=== PATIENT | male | born 1970 | race Caucasian/White ===

== ENCOUNTER → 2018-09-15 | Outpatient (CLI) | payer OTHER ==
[~2018-09-15] MED LIST: GASTROGRAFIN SOLUTION 30ML (Q9963) As Ordered; ISOVUE-370 76% 100ML VIAL (Q9967) As Ordered
== END ==
LOC: M RAD 14:10
DX: R10.813 Right lower quadrant abdominal tenderness (principal)
CPT/HCPCS: Q9963

== ENCOUNTER → 2019-06-08 | Outpatient (CLI) | payer OTHER ==
[2019-06-08 13:58] LABS: BASO # 0.1 10^3/uL (0.0-0.2); BASO % 0.9 % (0.0-1.0); EOS # 0.1 10^3/uL (0.0-0.50); EOS % 1.9 % (0.0-3.0); HEMATOCRIT 43.7 % (42.0-52.0); HEMOGLOBIN 15.7 g/dl (13.5-17.5); LYMPH # 1.5 10^3/uL (1.5-4.5); LYMPH % 27.7 % (24.0-44.0); MEAN CORPUSCULAR HEMOGLOBIN 31.3 pg (27.0-33.0); MEAN CORPUSCULAR HGB CONC 35.9 g/dl (32.0-36.5); MEAN CORPUSCULAR VOLUME 87.1 fl (80.0-96.0); MONO # 0.3 10^3/uL (0.0-0.8); NEUTROPHILS # 3.4 10^3/uL (1.8-7.7); NEUTROPHILS % 64.1 % (36.0-66.0); PLATELET COUNT, AUTOMATED 210 10^3/uL (150-450); RED BLOOD COUNT 5.02 10^6/uL (4.30-6.10); WHITE BLOOD COUNT 5.4 10^3/uL (4.0-10.0)
[2019-06-08 14:17] LABS: ERYTHROCYTE SEDIMENTATION RATE 8 mm/hr (0-15)
[2019-06-08 14:28] LABS: RHEUMATOID FACTOR QUANT < 10.0 IU/ML (<15.0); THYROXINE (T4) 10.7 UG/DL (4.5-12.0)
== END ==
LOC: M LAB 12:52
PROVIDERS: ATTEND Ophthalmology
DX: Z13.29 Encounter for screening for other suspected endocrine disorder (principal)

== ENCOUNTER → 2019-07-11 | Outpatient (REF) | payer OTHER ==
[~2019-07-11] MED LIST changes: +DOXY100C PO; -GASTROGRAFIN SOLUTION 30ML (Q9963) As Ordered; -ISOVUE-370 76% 100ML VIAL (Q9967) As Ordered; +NEXI20CA PO
[2019-07-11 16:56] LABS: ALBUMIN 4.4 GM/DL (3.2-5.2); ALT/SGPT 25 U/L (12-78); BILIRUBIN,TOTAL 0.7 MG/DL (0.2-1.0); BLOOD UREA NITROGEN 12 MG/DL (7-18); C REACTIVE PROTEIN QUANTITATIV < 0.30 MG/DL (0.00-0.30); CARBON DIOXIDE LEVEL 27 MEQ/L (21-32); CHLORIDE LEVEL 105 MEQ/L (98-107); CREATININE FOR GFR 0.84 MG/DL (0.70-1.30); GLOMERULAR FILTRATION RATE > 60.0 (>60); GLUCOSE, FASTING 88 MG/DL (70-100); POTASSIUM SERUM 3.8 MEQ/L (3.5-5.1); SODIUM LEVEL 140 MEQ/L (136-145); TOTAL PROTEIN 7.6 GM/DL (6.4-8.2)
[2019-07-11 16:57] LABS: BASO # 0.1 10^3/uL (0.0-0.2); BASO % 1.5 % (0.0-1.0); EOS # 0.1 10^3/uL (0.0-0.5); EOS % 1.7 % (0.0-3.0); HEMATOCRIT 45.9 % (42.0-52.0); HEMOGLOBIN 15.7 g/dl (13.5-17.5); LYMPH # 1.4 10^3/uL (1.5-5.0); LYMPH % 29.2 % (24.0-44.0); MEAN CORPUSCULAR HEMOGLOBIN 30.4 pg (27.0-33.0); MEAN CORPUSCULAR HGB CONC 34.2 g/dl (32.0-36.5); MONO # 0.4 10^3/uL (0.0-0.8); MONO % 8.2 % (0.0-5.0); NEUTROPHILS # 2.7 10^3/uL (1.5-8.5); PLATELET COUNT, AUTOMATED 200 10^3/uL (150-450); RED BLOOD COUNT 5.16 10^6/uL (4.30-6.10); WHITE BLOOD COUNT 4.6 10^3/uL (4.0-10.0)
[2019-07-11 18:06] LABS: ERYTHROCYTE SEDIMENTATION RATE 6 mm/hr (0-15)
[2019-07-15 00:06] LABS: BABESIOSIS LEVEL IGG <1:10 (Neg:<1:10); BABESIOSIS LEVEL IGM <1:10 (Neg:<1:10); E CHAFFEENSIS IgG TITER Negative (Neg:<1:64); E CHAFFEENSIS IgM TITER Negative (Neg:<1:20); HUMAN GRANULCYTIC EHRLIC IgG Negative (Neg:<1:64); HUMAN GRANULCYTIC EHRLIC IgM Negative (Neg:<1:20)
== END ==
LOC: M SFHCPLAZ 12:52
PROVIDERS: ATTEND Internal Medicine Infectious Disease
DX: A69.20 Lyme disease, unspecified (principal)

== ENCOUNTER 2019-07-13 15:03 | Outpatient (CLI) | payer OTHER ==
[~2019-07-13] VITALS: Ht 180.3 cm; Wt 95.3 kg
[~2019-07-13 15:03] MED LIST changes: -LIDOCAINE 1% MDV 20ML VIAL As Ordered ONE
[2019-07-13 15:05] VITALS: BP 136/79
[2019-07-13] MEDS ORDERED: SODIUM CHLORIDE 0.9% INJ 10 ML SYR IV PRN (15:30)
[2019-07-13] MEDS ORDERED: cefTRIAXone SOD 2 GM in D5W MINI-BAG PLUS 50 ML IV ONE (16:00)
[2019-07-13] MEDS ORDERED: SODIUM CHLORIDE 0.9% INJ 10 ML SYR IV SCH (18:00)
== END 2019-07-13 16:00 | disposition short-term general hospital (02) ==
LOC: M INFU 15:03
PROVIDERS: ATTEND Internal Medicine Infectious Disease
DX: A69.20 Lyme disease, unspecified (principal)
CPT/HCPCS: 96365; J0696

== ENCOUNTER 2019-07-13 15:59 | Emergency (ER) | payer OTHER ==
[~2019-07-13] VITALS: Ht 180.3 cm; Wt 100.0 kg
[2019-07-13 17:13] LABS: BASO # 0.1 10^3/uL (0.0-0.2); BASO % 1.1 % (0.0-1.0); EOS # 0.1 10^3/uL (0.0-0.5); EOS % 2.5 % (0.0-3.0); HEMATOCRIT 39.3 % (42.0-52.0); HEMOGLOBIN 14.2 g/dl (13.5-17.5); LYMPH # 2.2 10^3/uL (1.5-5.0); LYMPH % 39.4 % (24.0-44.0); MEAN CORPUSCULAR HEMOGLOBIN 31.1 pg (27.0-33.0); MEAN CORPUSCULAR HGB CONC 36.1 g/dl (32.0-36.5); MONO # 0.5 10^3/uL (0.0-0.8); MONO % 8.1 % (0.0-5.0); NEUTROPHILS # 2.7 10^3/uL (1.5-8.5); NEUTROPHILS % 48.5 % (36.0-66.0); PLATELET COUNT, AUTOMATED 201 10^3/uL (150-450); RED BLOOD COUNT 4.57 10^6/uL (4.30-6.10); WHITE BLOOD COUNT 5.5 10^3/uL (4.0-10.0)
[2019-07-13 17:24] LABS: INR 0.92; PROTHROMBIN TIME 12.1 SECONDS (11.8-14.0)
[2019-07-13 17:55] LABS: ALBUMIN 3.8 GM/DL (3.2-5.2); ALT/SGPT 20 U/L (12-78); BILIRUBIN,DIRECT < 0.1 MG/DL (0.0-0.2); BILIRUBIN,TOTAL 0.3 MG/DL (0.2-1.0); BLOOD UREA NITROGEN 11 MG/DL (7-18); CALCIUM LEVEL 8.8 MG/DL (8.5-10.1); CARBON DIOXIDE LEVEL 23 MEQ/L (21-32); CHLORIDE LEVEL 107 MEQ/L (98-107); CK-MB VALUE MASS 1.2 NG/ML (<3.6); CPK CREATINE PHOSPHOKINASE 193 U/L (39-308); CREATININE FOR GFR 0.92 MG/DL (0.70-1.30); GLOMERULAR FILTRATION RATE > 60.0 (>60); GLUCOSE, FASTING 106 MG/DL (70-100); MB/CK RELATIVE INDEX 0.62 (< OR =4); POTASSIUM SERUM 3.3 MEQ/L (3.5-5.1); SODIUM LEVEL 140 MEQ/L (136-145); TOTAL PROTEIN 6.8 GM/DL (6.4-8.2); TROPONIN I < 0.02 NG/ML (< 0.10)
[2019-07-13 18:40] VITALS: BP 131/79
--- NOTE | 2019-07-14 00:09 | ECGEPIP ---
[facility] - ED Test Date: 2019-07-13 Pat Name: CHIKA CABRAL Department: Room: - Gender: Male Hse Specialist: [facility] : 1970 Requested By: DEVI Rivera Order Number: [id number] Reading MD: Steve Farias Measurements Intervals [place] Rate: 72 P: 62 DC: 152 QRS: 49 QRSD: 96 T: 38 QT: 399 QTc: 438 Interpretive Statements SINUS RHYTHM BENIGN EARLY REPOLARIZATION NO PRIORS FOR COMPARISON Electronically Signed on 07-14-2019 0:09:28 EDT by Steve Farias
== END 2019-07-13 18:30 | disposition home or self-care (01) ==
LOC: M ED 15:59
DX: R55 Syncope and collapse (principal); A69.20 Lyme disease, unspecified; Z79.899 Other long term (current) drug therapy

== ENCOUNTER → 2019-07-13 | Outpatient (CLI) | payer OTHER ==
[~2019-07-13] MED LIST changes: +LIDOCAINE 1% MDV 20ML VIAL As Ordered ONE
[2019-07-13 14:42] VITALS: BP 157/87
--- NOTE | 2019-07-14 16:03 | REP ---
PICC line insertion under ultrasound guidance. The procedure was performed by SHILPA Kate, under the direct supervision of Dr. Crandall. The risks and benefits of the procedure were explained to the patient and informed consent was obtained both verbally and written. Directly prior to the start of the procedure, a formal timeout was completed in the procedure room. The left medial brachial vein was localized using ultrasound guidance. The skin was prepped and draped in the sterile fashion. 1 ml 1% lidocaine was used as a local anesthetic. Using ultrasound guidance the left medial brachial vein was cannulated and a 0.018 guidewire was inserted and advanced to the SVC using fluoroscopic guidance. The needle was removed and a 4.5 Hungarian dilator and peel-away sheath was inserted over the guidewire. A 4.5 Hungarian single lumen catheter was cut to the length of 40 cm. The dilator was removed and the catheter was inserted over the guide wire with the tip ending in the SVC. The peel-away sheath was removed and the catheter was flushed with heparinized saline as per hospital protocol. The catheter was affixed to the skin and a sterile dressing was applied. The patient tolerated the procedure well and there were no immediate complications. 0.3 minutes of fluoroscopy time was utilized for this procedure. Some fluoroscopic images are performed with last image hold technology. These images require no additional radiation. Reviewed by SHILPA Rivera 07/14/2019 03:44 P Electronically Signed by Roberto Crandall MD 07/14/2019 03:55 P
== END ==
LOC: M IRPRO 13:44
DX: A69.20 Lyme disease, unspecified (principal)
CPT/HCPCS: 36569; C1751

== ENCOUNTER 2019-07-17 20:31 | Inpatient (IN) | payer OTHER ==
[~2019-07-17] VITALS: Ht 180.3 cm; Wt 94.5 kg
[2019-07-17 22:02] LABS: BASO # 0.1 10^3/uL (0.0-0.2); BASO % 0.7 % (0.0-1.0); EOS # 0.2 10^3/uL (0.0-0.5); EOS % 2.5 % (0.0-3.0); HEMATOCRIT 45.2 % (42.0-52.0); HEMOGLOBIN 16.2 g/dl (13.5-17.5); LYMPH # 2.6 10^3/uL (1.5-5.0); MEAN CORPUSCULAR HEMOGLOBIN 30.1 pg (27.0-33.0); MEAN CORPUSCULAR HGB CONC 35.8 g/dl (32.0-36.5); MONO # 0.4 10^3/uL (0.0-0.8); MONO % 6.2 % (0.0-5.0); NEUTROPHILS # 3.8 10^3/uL (1.5-8.5); NEUTROPHILS % 53.3 % (36.0-66.0); PLATELET COUNT, AUTOMATED 230 10^3/uL (150-450); RED BLOOD COUNT 5.38 10^6/uL (4.30-6.10); WHITE BLOOD COUNT 7.1 10^3/uL (4.0-10.0)
[2019-07-17 22:23] LABS: BLOOD UREA NITROGEN 11 MG/DL (7-18); CALCIUM LEVEL 9.7 MG/DL (8.5-10.1); CARBON DIOXIDE LEVEL 26 MEQ/L (21-32); CHLORIDE LEVEL 107 MEQ/L (98-107); CK-MB VALUE MASS < 1.0 NG/ML (<3.6); CPK CREATINE PHOSPHOKINASE 142 U/L (39-308); GLOMERULAR FILTRATION RATE > 60.0 (>60); GLUCOSE, FASTING 84 MG/DL (70-100); POTASSIUM SERUM 3.4 MEQ/L (3.5-5.1); SODIUM LEVEL 142 MEQ/L (136-145); TROPONIN I < 0.02 NG/ML (< 0.10)
[2019-07-17 22:30] LABS: INR 0.95; PROTHROMBIN TIME 12.4 SECONDS (11.8-14.0)
[2019-07-17 22:31] LABS: PARTIAL THROMBOPLASTIN TIME 36.8 SECONDS (25.0-38.4)
--- NOTE | 2019-07-17 23:19 | REPVR ---
PROCEDURE INFORMATION: Exam: US Duplex Left Upper Extremity Veins, Limited Exam date and time: 07/17/2019 10:52 PM Clinical history: 48 years old, male; Pain; Other: Chest; Prior surgery; Surgery date: 3-7 days post-operative; Surgery type: Picc; Additional info: Eval for thrombosis post picc TECHNIQUE: Imaging protocol: Real-time Duplex ultrasound of the Left Upper Extremity with 2-D stewart scale, color Doppler flow and spectral waveform analysis with image documentation. Limited exam focused on the left upper extremity veins. COMPARISON: No relevant prior studies available. FINDINGS: Left deep veins: Internal jugular, subclavian, axillary and brachial veins patent without thrombus. Normal compressibility, augmentation response and/or Doppler waveforms. Left superficial veins: Visualized cephalic and basilic veins patent without thrombus. Additional findings: PIC line in place. Soft tissues: Unremarkable. IMPRESSION: No sonographic evidence of deep vein thrombosis. Electronically signed by: Vincenzo Guaman On 07/17/2019 23:18:55 PM
--- NOTE | 2019-07-18 01:23 | HPEPDOC ---
[facility] Medical History & Physical Date of Admission Jul 18, 2019 Date of Service: Jul 18, 2019 Primary Care Physician: A Other Provider Benson Bajwa Attending Physician: STEFAN PATEL MD History and Physical TIME OF SERVICE: 3 a.m. CHIEF COMPLAINT: Chest pain HISTORY OF PRESENT ILLNESS: This is a 48-year-old male who presents with complaints of several week in duration, mid, nonradiating squeezing 4/10 in severity, chest pain. Associated symptoms include dizziness, dyspnea, and nausea. He denies having vomiting. He was diagnosed with Lyme's disease about 2-3 weeks ago and started on doxycycline via PICC line; due to difficulties with using the PICC line he has missed several doses of abx. Prior to the diagnosis of Lyme's disease he was having vis ion problems, tinnitus, myalgias and hearing loss. Per discussion with the ED provider his EKG showed second degree heart block. REVIEW OF SYSTEMS: 12 point review of systems negative except as listed in HPI PAST MEDICAL/ SURGICAL HISTORY: Lyme's disease Prostatitis s/p right inguinal hernia repair SOCIAL HISTORY: Nonsmoker Lives with FAMILY HISTORY: Lung cancer breast cancer HTN colon cancer GERD ALLERGIES: Please see below. HOME MEDICATIONS: Please see below. PHYSICAL EXAMINATION: VITAL SIGNS: Please see below. GENERAL APPEARANCE: Well-nourished, well-developed, anxious HEENT: Normocephalic, atraumatic. Mucous members moist and pink CARDIOVASCULAR: Heart rate irregularly irregular. Radial pulses are palpable is no lower extremity edema LUNGS: Her to auscultation bilaterally on room air ABDOMEN: Soft and nontender. Palpation MUSCULOSKELETAL: Has a picc line at his left upper extremity INTEGUMENT: Has red lesions on his right arm NEUROLOGICAL:. Cranial nerves 12 grossly intact. Speech is not dysarthric PSYCHIATRIC: Alert and oriented to person, place, time, able to understand and follow commands LABORATORY DATA: See below. IMAGING: Ultrasound negative for left upper extremity DVT Chest x-ray unremarkable but the final report is pending MICROBIOLOGY: Please see below. ASSESSMENT: Mr. Kline is a 48-year-old male with a past medical history of Lyme's dis ease will be admitted for management of heart block. PLAN: 1. Second degree AV block possibly due to Lyme's. TSH and troponin are within normal limits Plan: Admit to PCU/nothing by mouth/cardiogenic consult/ subcutaneous pacers at bedside/atropine 0.5 mg IV PRN for HR <30 2. Lyme's disease. Plan: ID consult / ceftriaxone 2G IV daily 3. Hypokalemia. Plan: Replete potassium, follow-up mag DVT prophylaxis with SCDs. Disposition pending clinical course Vital Signs Vital Signs Date Time Temp Pulse Resp B/P (MAP) Pulse Ox O2 Delivery O2 Flow Rate FiO2 07/18/19 00:55 116/55 (75) 07/18/19 00:46 78 97 07/17/19 20:32 97.1 20 Room Air Laboratory Data Labs 24H Laboratory Tests 2 07/17/19 21:48: Immature Granulocyte % (Auto) 0.3, White Blood Count 7.1, Red Blood Count 5.38, Hemoglobin 16.2, Hematocrit 45.2, Mean Corpuscular Volume 84.0, Mean Corpuscular Hemoglobin 30.1, Mean Corpuscular Hemoglobin Concent 35.8, Red Cell Distribution Width 12.4, Platelet Count 230, Neutrophils (%) (Auto) 53.3, Lymphocytes (%) (Auto) 37.0, Monocytes (%) (Auto) 6.2H, Eosinophils (%) (Auto) 2.5, Basophils (%) (Auto) 0.7, Neutrophils # (Auto) 3.8, Lymphocytes # (Auto) 2.6, Monocytes # (Auto) 0.4, Eosinophils # (Auto) 0.2, Basophils # (Auto) 0.1, Nucleated Red Blood Cells % (auto) 0.0, Prothrombin Time 12.4, Prothromb Time International Ratio 0.95, Activated Partial Thromboplast Time 36.8, Anion Gap 9, Glomerular Filtration Rate > 60.0, Blood Urea Nitrogen 11, Creatinine 0.90, Sodium Level 142, Potassium Level 3.4L, Chloride Level 107, Carbon Dioxide Level 26, Calcium Level 9.7, Total Creatine Kinase 142, Creatine Kinase MB < 1.0, Creatine Kinase MB Relative Index 0.70, Troponin I < 0.02 07/18/19 00:53: CBC/BMP Laboratory Tests 07/17/19 21:48 Red Blood Count 5.38, Mean Corpuscular Volume 84.0, Mean Corpuscular Hemoglobin 30.1, Mean Corpuscular Hemoglobin Concent 35.8, Red Cell Distribution Width 12.4, Neutrophils (%) (Auto) 53.3, Lymphocytes (%) (Auto) 37.0, Monocytes (%) (Auto) 6.2 H, Eosinophils (%) (Auto) 2.5, Basophils (%) (Auto) 0.7, Neutrophils # (Auto) 3.8, Lymphocytes # (Auto) 2.6, Monocytes # (Auto) 0.4, Eosinophils # (Auto) 0.2, Basophils # (Auto) 0.1, Calcium Level 9.7, Total Creatine Kinase 142 Home Medications Scheduled Ceftriaxone Sodium (Ceftriaxone) 2 Gm Vial.port, 2 GM INJ Q24H Esomeprazole Magnesium (Nexium) 20 Mg Capsule.dr, 20 MG PO DAILY TAKES AT NOON Scheduled PRN Acetaminophen (Acetaminophen) 500 Mg Tablet, 1,000 MG PO Q6HP PRN for PAIN / FEVER Allergies Coded Allergies: No Known Allergies (Verified , 02/12/05) A-FIB/CHADSVASC A-FIB History Current/History of A-Fib/PAF?: No Current PO Anticoag Therapy: No STEFAN PATEL MD Jul 18, 2019 01:23
[2019-07-18 01:31] LABS: CK-MB VALUE MASS 1.1 NG/ML (<3.6); CPK CREATINE PHOSPHOKINASE 102 U/L (39-308); MAGNESIUM LEVEL 2.2 MG/DL (1.8-2.4); MB/CK RELATIVE INDEX 1.08 (< OR =4); TROPONIN I < 0.02 NG/ML (< 0.10)
[2019-07-18] MEDS ORDERED: DOXYCYCLINE HYCLATE 100 MG TAB PO ONE (01:45)
[2019-07-18 04:00] VITALS: BP 173/104
[2019-07-18] MEDS ORDERED: ATROPINE SULF 1MG/10ML SYRINGE (J0461) IV PRN (04:00)
[2019-07-18] MEDS ORDERED: SODIUM CHLORIDE 0.9% INJ 10 ML SYR IV PRN (04:00)
[2019-07-18] MEDS ORDERED: ACETAMINOPHEN *IV* 1,000 MG in IV 1 EA IV ONE (04:00)
[2019-07-18] MEDS ORDERED: KCL 10MEQ/100ML SWI (KRUN) 10 MEQ in IV 1 EA IV ONE (04:00)
[2019-07-18] MEDS: NS 1,000 ML IV SCH ×2 (04:01→14:39)
[2019-07-18] MEDS: SODIUM CHLORIDE 0.9% INJ 10 ML SYR IV SCH ×2 (04:14→17:12)
[2019-07-18] MEDS: cefTRIAXone SOD 2 GM in D5W MINI-BAG PLUS 50 ML IV SCH (06:26)
[2019-07-18 06:37] LABS: MAGNESIUM LEVEL 2.3 MG/DL (1.8-2.4)
--- NOTE | 2019-07-18 07:53 | REP ---
Portable chest x-ray: Single view. History: Chest pain. Findings: The lungs are well inflated and clear. Pleural angles are sharp. Heart size is normal. Pulmonary vasculature is not increased. EKG electrodes are seen. A left-sided PICC line is noted with its tip in the expected location of the superior vena cava. Impression: No acute disease. Left-sided PICC line in place. Electronically Signed by Ruddy Wilson MD 07/18/2019 07:45 A
--- NOTE | 2019-07-18 07:54 | REP ---
Chest x-ray: Two views. History: PICC placement. Comparison is made with the chest x-ray done portably earlier this same evening. Findings: EKG electrodes are seen. Left-sided PICC line is noted in place with its tip in the expected location of the superior vena cava. Lungs are well inflated and clear. Heart is not enlarged. Pulmonary vasculature is not increased. No infiltrate is seen. Impression: No acute disease. Left-sided PICC line in place. Electronically Signed by Ruddy Wilson MD 07/18/2019 07:46 A
[2019-07-18 08:00] VITALS: BP 130/73
[2019-07-18 09:00] LABS: BLOOD UREA NITROGEN 10 MG/DL (7-18); C REACTIVE PROTEIN QUANTITATIV < 0.30 MG/DL (0.00-0.30); CALCIUM LEVEL 8.8 MG/DL (8.5-10.1); CARBON DIOXIDE LEVEL 25 MEQ/L (21-32); CHLORIDE LEVEL 110 MEQ/L (98-107); CREATININE FOR GFR 0.82 MG/DL (0.70-1.30); GLOMERULAR FILTRATION RATE > 60.0 (>60); GLUCOSE, FASTING 106 MG/DL (70-100); POTASSIUM SERUM 3.7 MEQ/L (3.5-5.1); SODIUM LEVEL 142 MEQ/L (136-145)
[2019-07-18] MEDS ORDERED: DOXYCYCLINE HYCLATE 100 MG TAB PO SCH (09:00)
[2019-07-18 09:03] LABS: BASO # 0.1 10^3/uL (0.0-0.2); BASO % 1.3 % (0.0-1.0); EOS # 0.2 10^3/uL (0.0-0.5); EOS % 3.6 % (0.0-3.0); HEMATOCRIT 42.5 % (42.0-52.0); LYMPH # 1.6 10^3/uL (1.5-5.0); LYMPH % 29.3 % (24.0-44.0); MEAN CORPUSCULAR HEMOGLOBIN 30.4 pg (27.0-33.0); MEAN CORPUSCULAR HGB CONC 35.3 g/dl (32.0-36.5); MONO # 0.4 10^3/uL (0.0-0.8); MONO % 7.3 % (0.0-5.0); NEUTROPHILS # 3.1 10^3/uL (1.5-8.5); NEUTROPHILS % 57.7 % (36.0-66.0); PLATELET COUNT, AUTOMATED 197 10^3/uL (150-450); RED BLOOD COUNT 4.94 10^6/uL (4.30-6.10); WHITE BLOOD COUNT 5.3 10^3/uL (4.0-10.0)
[2019-07-18 10:04] LABS: ERYTHROCYTE SEDIMENTATION RATE 9 mm/hr (0-15)
[2019-07-18] MEDS: PANTOPRAZOLE 20 MG TAB PO SCH (11:28)
[2019-07-18 12:00] VITALS: BP 137/94
--- NOTE | 2019-07-18 16:36 | IPN ---
DATE: 07/18/2019 Addendum to history and physical. Per Dr. Carty, review of patient's telemetry strips and EKG yielded that the patient has premature atrial complexes and does not have any second-degree Mobitz type 2 atrioventricular (AV) block. He believes that the patient's complaint of chest pain is most likely secondary to premature atrial complexes from chronic caffeinated use of eight to nine Pepsi Cola beverages daily, as well as coffee. He has been instructed to decrease his caffeine intake and further recommendations will be to obtain an echocardiogram. We are still awaiting further recommendations from Dr. Abdalla; cerebral spinal fluid (CSF), lumbar puncture were recommended. Patient is currently off monitor for evaluation. [facility]
[2019-07-18 18:29] LABS: CSF TUBE# GLU TUBE 2; CSF TUBE# TP TUBE 2; GLUCOSE CSF 58 MG/DL (40-75); TOTAL PROTEIN,CSF 70 MG/DL (15-45)
[2019-07-18 18:50] LABS: APPEARANCE, CSF CLEAR (CLEAR); COLOR, CSF COLORLESS (COLORLESS); CSF TUBE# CELL CNT TUBE 1
[2019-07-18 18:51] LABS: APPEARANCE, CSF CLEAR (CLEAR); COLOR, CSF COLORLESS (COLORLESS); CSF TUBE# CELL CNT TUBE 4
[2019-07-18 20:00] VITALS: BP 141/94
--- NOTE | 2019-07-18 20:32 | CR ---
DATE OF CONSULTATION: 07/18/2019 Asked to consult by the hospitalist for followup on diagnosis of Lyme disease. HISTORY OF PRESENT ILLNESS: Mr. Kline is a 48-year-old gentleman who presented yesterday to the emergency room complaining of squeezing, nonradiating chest pain associated with palpitations, dizziness, dyspnea, and nausea. The patient was seen in my office last week with a diagnosis of Lyme disease with positive Lyme serology with 5 out of 10 positive IgG bands. The patient was having symptoms for the past couple years with headache, hearing loss, floaters in his eyes, generalized weakness, joint pains. The patient had been worked up by his primary care provider with no obvious source. He was referred to ophthalmology, Dr. Mansfield, who did the workup, and on June 08 he had a Lyme serology which showed a IgG of 5/10 positive bands. Treponema pallidum antibodies were nonreactive. Babesia was negative. Ehrlichia, Anaplasma were negative. These were done on July 11 in my office. ROZ negative. ANCA was negative. Anti-Sjogren antibody, HLA-B27, and rheumatoid factor were all negative. The patient had been on doxycycline for about 2 weeks prior to admission. He was not feeling any better, and due to the concern of his eyes findings with floaters, keratoconjunctivitis sicca, hearing loss, I had decided to start him on IV Rocephin. He came to [facility] on July 13, where he had a peripherally inserted central catheter (PICC) line. [facility] through his infusion of IV Rocephin, he had a vasovagal episode and was sent to the emergency room. He was given IV fluids and sent home. I had decided not to give him IV Rocephin, as there was concern whether he had a reaction to that antibiotic, and switch him to IV doxycycline. There were issues with his prior authorization of this new antibiotic, and therefore the patient continued on oral doxycycline for the past 4 days with a PICC line that was being flushed. The patient was anxious about the PICC line, and it was causing some palpitations that got worse with the PICC line. PAST MEDICAL HISTORY: Significant for history of chronic prostatitis. ALLERGIES: No known drug allergies. PAST SURGICAL HISTORY:1 1. Tonsillectomy. 2. Appendectomy. 3. Embryologic branchial cyst removed from the neck. 4. Laser eye correction. 5. Right inguinal hernia repair. MEDICATIONS: - doxycycline 100 mg by mouth twice a day - Nexium 20 mg by mouth daily HOSPITALIZATION: Only related to surgery. FAMILY HISTORY: Father of lung cancer at the age of 67. Mother has breast cancer and skin cancer. SOCIAL HISTORY: He is . He lives with his , and his son is a mala. His daughter is in college. 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 REVIEW OF SYSTEMS: He has anxiety, body aches, fatigue. No fever or chills. He has been having insomnia, hearing loss, blurry vision. No night sweats. No weight change. No abdominal pain. He has reflux. No blood in his stool, constipation, or diarrhea. He denies any chest congestion but has been having chest pains and palpitations. MEDICATIONS: - Rocephin 2 grams IV daily - heparin flushes - Protonix 20 mg by mouth daily LABORATORY DATA: White count 5.3, hemoglobin 15, hematocrit 42.5, platelets 197, 57% neutrophils, 21% lymphocytes, 7% monocytes, 3% eosinophil, ESR 9. Sodium 142, potassium 3.7, chloride 110, bicarbonate 24, BUN 10, creatinine 0.82, glucose 106, calcium 8.8, magnesium 2.3. CPK of 102. Troponin less than 0.02. CRP less than 0.3. Procalcitonin is pending. CSF Gram stain and cultures are pending. Fluid had 1 white cell, less than 2 red cells. Total protein 78, glucose 58. Lyme serology is pending. VDRL was ordered and pending. EKG reviewed by hospitalist showed premature ventricular contractions (PVCs) and premature atrial contractions (PACs). Dr. Carty saw the patient, who felt that some of his symptoms are related to too much caffeine. Echocardiogram was ordered and is pending. PHYSICAL EXAMINATION: Healthy-looking gentleman in no acute distress. Temperature is 96.4, pulse 66, respirations 18, blood pressure 137/94, oxygen saturation 99% on room air. HEART: Normal S1, S2 with no murmurs, rubs, or gallops. LUNGS: Clear. No wheezes, rales, or rhonchi. ABDOMEN: Soft, nontender. No hepatosplenomegaly. BACK: No costovertebral angle (CVA) or lumbosacral tenderness. EXTREMITIES: No clubbing, cyanosis, or edema. NECK: Supple. No jugular venous distention (JVD). No bruits. Cranial nerves intact except for hearing loss. Pupils equal and reactive. Motor strength: Upper and lower extremity strength normal and reflexes normal. IMPRESSION: This is a 48-year-old gentleman who presented to my office last week with symptoms of headache, hearing loss, floaters in his eyes with Lyme serology positive for late Lyme disease with 5 out of 10 positive IgG bands. His major symptoms are the hearing loss, floaters in the eye, the headaches, and therefore lumbar puncture was ordered, which showed elevated total protein but no pleocytosis. 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 His chest pain and arrhythmias could be related to his PICC line that was just placed last week, which also was associated with a vasovagal syncope. PLAN: Please pull the PICC line 3-4 cm. I did discuss the case with Dr. Wilson, and he stated it could be irritating him and causing some premature PVCs. Lumbar puncture was ordered. We will add cerebrospinal fluid (CSF), VDRL, and Lyme serology. Will have my nurse work on his prior authorization for IV Rocephin at home.
--- NOTE | 2019-07-18 21:19 | CR ---
DATE OF CONSULTATION: 07/18/2019 REFERRING PHYSICIAN: Kym Wray MD REASON FOR CONSULTATION: Mobitz type II second degree heart block. HISTORY OF PRESENT ILLNESS: Mr. Jorge Kline is a pleasant 48-year-old man who has recently been diagnosed with Lyme disease. He reports a fatal episode passing out during an IV infusion on last week for which he was diagnosed with vasovagal syncope. Other than that no previous episodes of passing out. The patient presented to the emergency room and was admitted early this morning with complaints of recurrent mid anterior chest recurrent squeezing discomfort, as well as complaints of shortness of breath on exertion and dizziness and nausea. His electrocardiogram by computer interpretation diagnosed sinus bradycardia with second degree AV block, Mobitz type II. Because of the initial computer interpretation on that electrocardiogram (ECG), cardiology consultation was placed. The patient was diagnosed with Lyme disease a few weeks ago and was placed on antibiotics. He is followed by Dr. Brian Abdalla of infectious disease service. 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 No peripheral edema. No orthopnea or paroxysmal nocturnal dyspnea (PND). He reports a 6 month history of recurrent palpitations associated with substernal squeezing sensation (no pain) with each individual palpitation (with each heart beat), which occurs in short salvos or individually and occurs several times per day. During these short salvos of these palpitations, he will sometimes feel dizziness. He is not bothered by any exertional chest pain, pressure, tightness or squeezing other than that described in direct association with each individual palpitation. No embolic events. No intermittent claudication. The patient describes consuming 6-8, 15 ounce bottles of Pepsi daily (50 mg of caffeine per bottle). In addition to this, he estimates he consumes 16 ounces of regular coffee a day. He consumes 2 to 4 mini chocolate bars daily as well. He consumes about two beers a week. REVIEW OF SYSTEMS: Review of systems as per history of present illness above. In addition to this, the patient reports that for the past few weeks he has been having decreased hearing, tinnitus and some vertigo. He also reports some myalgias. PAST MEDICAL AND SURGICAL HISTORY: Lyme disease diagnosed recently, prostatitis, status post right inguinal hernia repair. SOCIAL HISTORY: Lifetime nonsmoker. Caffeine and alcohol intake as listed above. Lives with his . FAMILY HISTORY: Lung cancer, breast cancer, systemic hypertension, colon cancer, gastroesophageal reflux disease (GERD). ALLERGIES: No known adverse drug reactions. MEDICATIONS PRIOR TO ADMISSION: - doxycycline 100 mg by mouth twice a day - Nexium 20 mg daily The patient's current medications in the hospital consist of Protonix 20 mg daily, heparin IV in the percutaneous indwelling central catheter (PICC) line, ceftriaxone 2 grams IV once daily, atropine 0.5 mg every 1 hour as needed for heart rate less than 30, sodium chloride 100 milliliters per hour IV. PHYSICAL EXAMINATION: Pleasant overweight middle aged appearing man who was not in any respiratory or psychologic distress. Height 71 inches, weight 93.4 kg, body mass index (BMI) 20.7. Temperature 96.4, pulse 66 with occasional irregularity, respiratory rate 18, blood pressure (BP) 137/94, oxygen saturation 99% on room air. No conjunctival pallor or scleral icterus or xanthomas. Some dental fillings present. Oral mucosa is moist. Tongue without pallor or cyanosis. Jugular venous pulsations were 3 cm. Trachea midline. No palpable thyroid. No clubbing, cyanosis or splinter hemorrhages. No skin lesions, skin pallor or icterus. Oriented to person, place and time. Mood and affect normal. Curvature of spine normal. Gait not tested. Gross motor strength and tone normal. No abnormal fasciculations or tremors. Respiratory expansion effort was good. No crackles or wheezes. No palpable apex beat. No lifts, parasternal heaves, thrills or palpable heart sounds. First and second heart sounds are normal. No S3, S4 or murmurs. Carotids are normal in volume and contour and without bruits. No palpable abdominal aorta. No abdominal bruits. Pedal pulses normal. No peripheral edema. Abdomen was obese, soft, nontender with normal bowel sounds. No hepatosplenomegaly or organomegaly. Liver span difficult to assess due to abdominal obesity. Stool for occult blood not presently indicated. LABORATORY WORK: 07/18/2019 was reviewed. Hemoglobin 15.0, hematocrit 42.5, platelets 197, erythrocyte sedimentation rate 9, sodium 142, potassium 3.7, chloride 110, CO2 25, BUN 10, creatinine 0.82, estimated glomerular filtration rate (GFR) greater than 60, glucose 106, calcium 8.8, magnesium 2.3, C-reactive protein less than 0.30. Troponin I less than 0.02. CPK 102, CK-MB 1.1 (1.08%). I have independently visualized the patient's PA and lateral chest x-ray acquired 07/17/2019 at 11:03 p.m. It appears to be a normal chest x-ray. Cardiac silhouette appears to be normal in size and configuration. No pulmonary vascular restriction. No interstitial or alveolar edema. No pleural effusions. No pneumothorax. No pulmonary vasculature redistribution. Electrocardiogram 07/18/2019 at 12:42 a.m. shows sinus rhythm with frequent blocked PACs, otherwise within normal limits. Specifically, she does not show second degree AV block Mobitz type II. Electrocardiogram 07/17/2019 at 2055 hours shows atrial tachycardiac at the beginning portion of the ECG, which transitioned to sinus bradycardia and then transitioned to sinus bradycardia with atrial bigeminy with the PACs conducted with RBBB. ASSESSMENT AND RECOMMENDATIONS: 1. Frequent PACs. This patient has frequent PACs resulting in palpations. His potassium and magnesium levels today were normal. His potassium level was slightly low at 3.4 earlier. I believe that this patient's frequent PACs are in large part related to caffeine toxicity. This is explained to the patient. I explain to the patient that he should avoid consuming more than 300 mg of caffeine per day, which is the limit for onset of human toxicity. I suggested that he cut back the caffeine as much as possible, but that he would have to cut back his caffeine intake slowly so as to avoid a caffeine withdrawal headache. 2. Chest pain unspecified. This patient reports concurrent chest squeezing with each palpitation he feels. I believe that this is part and parcel of his palpitations rather than due to myocardial ischemia. Electrocardiogram (ECG) does not show any pathologic Q waves or ischemic repolarization abnormalities. Cardiac enzymes are negative. I suspect that the patient's complaints of squeezing chest discomfort with palpitations will settle down the frequent PACs settle down after he has cut back his caffeine intake. 3. Overweight status. Body mass index (BMI) 28.7. I recommend the patient be on a low fat, whole fruit, more plant base diet. 4. Non-sustain atrial tachycardia. An episode of non-sustain atrial tachycardia was picked up on one of the patient's electrocardiograms (ECGs). Further evaluation with an echocardiogram Doppler. The patient no longer has to be on telemetry in the PCU because he does not actually have Mobitz type II second degree AV block. Thank you for asking me to see Jorge Eliud in consultation. ANABELLAD
--- NOTE | 2019-07-18 22:43 | ECHO ---
DATE OF PROCEDURE: 07/18/2019 REFERRING PHYSICIAN: Dr. Michael Carty INDICATION: Lyme carditis. HEIGHT: 180 cm WEIGHT: 93.4 kg 2D MEASUREMENTS: Left atrium: 3.8 cm Aortic root: 3.7 cm Ventricular septum: 0.97 cm Posterior wall: 1.18 cm LVOT: 2.6 cm Inferior vena cava: 1.7 cm DOPPLER MEASUREMENTS: Aortic valve velocity: 123 cm/s LVOT velocity: 89.5 cm/s LVOT VTI: 19.7 cm Mitral E velocity: 65.2 cm/s Mitral A velocity: 79.0 cm/s Mitral deceleration time: 215 milliseconds Mild tricuspid regurgitation. Estimated right ventricle systolic pressure: 29 mmHg assuming a pressure of 5 mmHg. Pulmonary artery systolic pressure: 21 mmHg. MITRAL ANNULAR TISSUE DOPPLER: E prime septal: 6.4 cm/s E prime lateral: 12.0 cm/s DESCRIPTION: Rhythm was sinus with frequent PACs. Image quality was adequate. No pericardial effusion. This was a 2D, M-mode, color flow Doppler and pulse wave Doppler examination and included mitral annular tissue Doppler. CONCLUSIONS: 1. Normal echocardiogram Doppler. 2. Normal left ventricle internal dimensions and wall thickness. Normal regional left ventricular (LV) wall motion and wall thickening. Normal LV systolic function. Left ventricular ejection fraction (LVEF) 70% by visual estimate. Normal LV diastolic function for age.
[2019-07-19] VITALS: BP 139/85
[2019-07-19] MEDS: NS 1,000 ML IV SCH (00:17)
[2019-07-19 04:00] VITALS: BP 129/87
[2019-07-19] MEDS: cefTRIAXone SOD 2 GM in D5W MINI-BAG PLUS 50 ML IV SCH (05:26)
[2019-07-19] MEDS: SODIUM CHLORIDE 0.9% INJ 10 ML SYR IV SCH (05:27)
[2019-07-19 05:38] LABS: HEMATOCRIT 42.5 % (42.0-52.0); HEMOGLOBIN 14.6 g/dl (13.5-17.5); MEAN CORPUSCULAR HGB CONC 34.4 g/dl (32.0-36.5); MEAN CORPUSCULAR VOLUME 87.4 fl (80.0-96.0); PLATELET COUNT, AUTOMATED 190 10^3/uL (150-450); RED BLOOD COUNT 4.86 10^6/uL (4.30-6.10); WHITE BLOOD COUNT 5.4 10^3/uL (4.0-10.0)
[2019-07-19 05:48] LABS: INR 1.01
[2019-07-19 05:55] LABS: BLOOD UREA NITROGEN 12 MG/DL (7-18); CALCIUM LEVEL 8.7 MG/DL (8.5-10.1); CARBON DIOXIDE LEVEL 26 MEQ/L (21-32); CHLORIDE LEVEL 113 MEQ/L (98-107); CREATININE FOR GFR 0.82 MG/DL (0.70-1.30); GLOMERULAR FILTRATION RATE > 60.0 (>60); GLUCOSE, FASTING 94 MG/DL (70-100); SODIUM LEVEL 144 MEQ/L (136-145)
[2019-07-19 08:00] VITALS: BP 140/82
[2019-07-19] MEDS ORDERED: ACETAMINOPHEN 500 MG TAB PO PRN (08:00)
[2019-07-19] MEDS ORDERED: ACETAMINOPHEN 500 MG TAB PO ONE (08:00)
[2019-07-19] MEDS ORDERED: ACET-683 PO (08:26)
[2019-07-19] MEDS ORDERED: CEFT2ADD INJ (08:26)
[2019-07-19] MEDS: PANTOPRAZOLE 20 MG TAB PO SCH (12:15)
--- NOTE | 2019-07-19 18:21 | DSES ---
DATE OF ADMISSION: 07/18/2019 DATE OF DISCHARGE: 07/19/2019 CONSULTANTS: Michael Carty MD, guide foreign tour. Brian Abdalla MD, infectious disease. PROCEDURES: Lumbar puncture 07/18/2019. PRIMARY DISCHARGE DIAGNOSES: 1. Frequent premature atrial complexes, atypical chest pain. 2. Overweight, BMI 28. 3. Nonsustained atrial tachycardia. 4. Neurologic Lyme disease. 5. Vasovagal syncope. DISCHARGE MEDICATIONS: - Ceftriaxone 2 grams IV every 24 hours to be managed by a PICC line by infectious disease specialist, Dr. Brian Abdalla. - acetaminophen 1 gram by mouth every 6 hourly as needed for pain or fever - Nexium 20 mg daily DISCHARGE INSTRUCTIONS: Patient is to complete a full course of antibiotics with IV ceftriaxone to be managed by Dr. Abdalla via home care using his PICC line as outpatient. HOSPITAL COURSE: This is a 48-year-old male who presented to the ER with complaints of atypical chest pains substernally with dizziness, palpitations, dyspnea and nausea and hearing loss. The patient was diagnosed as outpatient by infectious disease specialist for Lyme disease after being referred by grader operator, Dr. Mansfield on June 08 with positive Lyme. Treponema antibodies were nonreactive. Patient was given doxycycline for two weeks prior to admission and now complains of floaters and hearing loss. The patient on arrival was found to have an EKG showing possible second degree AV block. Shredder Tender Peat Dr. Mihcael Carty was consulted who reviewed the telemetry strips and two EKGs and felt that the patient had frequent premature atrial complexes. Echocardiogram read by Dr. Carty showed a normal systolic and diastolic function for his age with ejection fraction of 70%. Cardiac markers were negative and no other followup is required. On further inquiry, patient was known to consume 8 to 10 caffeinated beverages daily, particularly Pepsi which could be causing his premature atrial complexes and palpitations causing chest pain. His chest pain was not exertional and he was instructed by guide foreign tour to slowly taper down his caffeine use, to avoid caffeine withdrawal headaches. During this admission, he remained afebrile with normal white count. Sed rate was normal at 9. C-reactive protein was also normal at less than 0.3 and procalcitonin was 0.03. Lumbar puncture was performed which showed no organisms or cells seen. PICC line was evaluated on 07/17/2019 with the tip noted in expected location in the superior vena cava. Upper extremity Doppler on the left arm showed no DVT. Repeat chest x-ray showed no acute disease. Patient was kept on intravenous ceftriaxone and developed headache post lumbar puncture which responded to Tylenol 1 gram. The patient was stable for medical discharge, to followup with Dr. Abdalla for continued IV ceftriaxone for possible neurologic Lyme. LABS ON DISCHARGE: White count 5.4, hemoglobin 14, hematocrit 42, platelet count 190. Sodium 144, potassium 4, chloride 113, bicarbonate 26, BUN 12, creatinine 0.82. Glucose of 94. C-reactive protein less than 0.3. Procalcitonin 0.03. Troponin less than 0.02. CHF: No organism. No cells seen. IMAGING STUDIES: Vascular ultrasound: No deep venous thrombosis (DVT) of the left arm. Chest x-ray 07/17/2019, 21:30: PICC line in place in the expected location of the superior vena cava. No acute disease. Repeat chest x-ray 07/17/2019 at 23:00 shows lungs are well inflated and clear. No acute disease. Time spent on discharge: 38 minutes. MTDD
--- NOTE | 2019-07-19 20:41 | ECGEPIP ---
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
[2019-07-20 00:10] LABS: Lyme Disease IgG Ab 18 kDa Ban Absent (.); Lyme Disease IgG Ab 23 kDa Ban Absent (.); Lyme Disease IgG Ab 28 kDa Ban Absent (.); Lyme Disease IgG Ab 30 kDa Ban Absent (.); Lyme Disease IgG Ab 39 kDa Ban Absent (.); Lyme Disease IgG Ab 41 kDa Ban Present (.); Lyme Disease IgG Ab 45 kDa Ban Absent (.); Lyme Disease IgG Ab 58 kDa Ban Absent (.); Lyme Disease IgG Ab 66 kDa Ban Absent (.); Lyme Disease IgG Ab 93 kDa Ban Absent (.); Lyme Disease IgG West Blot Int Negative (.); Lyme Disease IgG/IgM Antibodie <0.91 ISR (0.00-0.90); Lyme Disease IgM Ab 23 kDa Ban Absent (.); Lyme Disease IgM Ab 39 kDa Ban Absent (.); Lyme Disease IgM Ab 41 kDa Ban Absent (.); Lyme Disease IgM Ab Quantitati 0.83 index (0.00-0.79); Lyme Disease IgM West Blot Int Negative (.)
--- NOTE | 2019-07-20 00:44 | ECGEPIP ---
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
--- NOTE | 2019-07-20 07:06 | ECGEPIP ---
[facility] - ED Test Date: 2019-07-18 Pat Name: CHIKA CABRAL Department: Room: [place] [address] Gender: Male Environmental Associate: VENTURA : 1970 Requested By: NATALIE SANCHEZ Order Number: [id number] Reading MD: Steve Farias Measurements Intervals [place] Rate: 59 P: [place]: 0 QRS: 22 QRSD: 99 T: 33 QT: 411 QTc: 407 Interpretive Statements SINUS BRADYCARDIA WITH 2ND DEGREE AV BLOCK, MOBITZ TYPE II RHYTHM CHANGE COMPARED TO 07/17/19 Electronically Signed on 07-20-2019 7:05:39 EDT by Steve Farias
--- NOTE | 2019-07-20 09:19 | REP ---
Procedure: Fluoro guidance for lumbar puncture. History: Lyme disease The procedure was performed under the direct supervision of Dr. Wilson. The risks and benefits of the procedure were explained to the patient and informed consent was obtained. The L3-4 interspace was localized using fluoroscopic guidance. The skin was prepped and draped in a sterile fashion. 1% lidocaine was used as a local anesthetic. Using fluoroscopic guidance a 22-gauge spinal needle was inserted and advanced into the thecal sac. Opening pressure measured 13 cm of water. 12 ml of spinal fluid was withdrawn and sent to lab. Impression: Opening pressure measured 13 cm of water. 12 ml of spinal fluid was withdrawn and sent to lab. The patient tolerated the procedure well and there were no immediate complications. Less than 6 seconds of fluoro time was utilized for this procedure. Electronically Signed by SHILPA Blanco 07/18/2019 05:13 P Electronically Signed by Ruddy Wilson MD 07/19/2019 07:42 A
== END 2019-07-19 12:24 | disposition home health service (06) | DRG 724 ==
LOC: M ED 20:31 → M ED INP 07-18 01:19 → CMPBEDREQ 07-18 01:20 → M PCU 07-18 03:28
PROVIDERS: ADMIT Internal Medicine; ATTEND General Practice
PROC: 009U3ZX Drainage of Spinal Canal, Percutaneous Approach, Diagnostic (ICD-10-PCS; principal; 2019-07-18)
DX: A69.20 Lyme disease, unspecified (principal); I49.1 Atrial premature depolarization; E87.6 Hypokalemia; R07.89 Other chest pain; T43.615A Adverse effect of caffeine, initial encounter; E66.3 Overweight; Z68.28 Body mass index [BMI] 28.0-28.9, adult; Z79.899 Other long term (current) drug therapy

== ENCOUNTER → 2019-07-24 | Outpatient (REF) | payer OTHER ==
[~2019-07-24] MED LIST changes: +ACET-683 PO; +CEFT2ADD INJ
[2019-07-24 14:12] LABS: HEMATOCRIT 41.9 % (42.0-52.0); HEMOGLOBIN 14.6 g/dl (13.5-17.5); MEAN CORPUSCULAR HEMOGLOBIN 30.7 pg (27.0-33.0); MEAN CORPUSCULAR HGB CONC 34.8 g/dl (32.0-36.5); MEAN CORPUSCULAR VOLUME 88.2 fl (80.0-96.0); PLATELET COUNT, AUTOMATED 208 10^3/uL (150-450); RED BLOOD COUNT 4.75 10^6/uL (4.30-6.10); WHITE BLOOD COUNT 4.3 10^3/uL (4.0-10.0)
[2019-07-24 14:49] LABS: ERYTHROCYTE SEDIMENTATION RATE 7 mm/hr (0-15)
== END ==
LOC: M LAB REF 13:30
PROVIDERS: ATTEND General Practice
DX: A69.20 Lyme disease, unspecified (principal); A69.22 Other neurologic disorders in Lyme disease

== ENCOUNTER → 2019-07-31 | Outpatient (REF) | payer OTHER ==
[2019-07-31 14:53] LABS: HEMATOCRIT 42.2 % (42.0-52.0); HEMOGLOBIN 14.3 g/dl (13.5-17.5); MEAN CORPUSCULAR HEMOGLOBIN 30.6 pg (27.0-33.0); MEAN CORPUSCULAR HGB CONC 33.9 g/dl (32.0-36.5); MEAN CORPUSCULAR VOLUME 90.4 fl (80.0-96.0); PLATELET COUNT, AUTOMATED 190 10^3/uL (150-450); RED BLOOD COUNT 4.67 10^6/uL (4.30-6.10); WHITE BLOOD COUNT 3.9 10^3/uL (4.0-10.0)
[2019-07-31 15:24] LABS: ERYTHROCYTE SEDIMENTATION RATE 8 mm/hr (0-15)
== END ==
LOC: M SHH 13:50
PROVIDERS: ATTEND General Practice
DX: A69.20 Lyme disease, unspecified (principal); A69.22 Other neurologic disorders in Lyme disease

== ENCOUNTER → 2019-08-07 | Outpatient (REF) | payer OTHER ==
[2019-08-07 18:21] LABS: HEMOGLOBIN 14.5 g/dl (13.5-17.5); MEAN CORPUSCULAR HEMOGLOBIN 30.3 pg (27.0-33.0); MEAN CORPUSCULAR HGB CONC 33.7 g/dl (32.0-36.5); PLATELET COUNT, AUTOMATED 211 10^3/uL (150-450); RED BLOOD COUNT 4.78 10^6/uL (4.30-6.10); WHITE BLOOD COUNT 4.5 10^3/uL (4.0-10.0)
[2019-08-07 18:55] LABS: ERYTHROCYTE SEDIMENTATION RATE 6 mm/hr (0-15)
== END ==
LOC: M SHH 17:31
PROVIDERS: ATTEND General Practice
DX: A69.20 Lyme disease, unspecified (principal); A69.22 Other neurologic disorders in Lyme disease

== ENCOUNTER → 2019-08-14 | Outpatient (REF) | payer OTHER ==
[2019-08-14 13:32] LABS: HEMATOCRIT 42.7 % (42.0-52.0); HEMOGLOBIN 14.7 g/dl (13.5-17.5); MEAN CORPUSCULAR HEMOGLOBIN 30.8 pg (27.0-33.0); MEAN CORPUSCULAR HGB CONC 34.4 g/dl (32.0-36.5); MEAN CORPUSCULAR VOLUME 89.3 fl (80.0-96.0); PLATELET COUNT, AUTOMATED 194 10^3/uL (150-450); RED BLOOD COUNT 4.78 10^6/uL (4.30-6.10); WHITE BLOOD COUNT 4.1 10^3/uL (4.0-10.0)
[2019-08-14 14:15] LABS: ERYTHROCYTE SEDIMENTATION RATE 7 mm/hr (0-15)
== END ==
LOC: M LAB REF 13:09
PROVIDERS: ATTEND General Practice
DX: A69.20 Lyme disease, unspecified (principal); A69.22 Other neurologic disorders in Lyme disease

== ENCOUNTER → 2019-08-21 | Outpatient (REF) | payer OTHER ==
[2019-08-21 14:34] LABS: BASO # 0.1 10^3/uL (0.0-0.2); BASO % 1.3 % (0.0-1.0); EOS # 0.2 10^3/uL (0.0-0.5); HEMATOCRIT 42.9 % (42.0-52.0); HEMOGLOBIN 14.6 g/dl (13.5-17.5); LYMPH # 1.3 10^3/uL (1.5-5.0); LYMPH % 27.6 % (24.0-44.0); MEAN CORPUSCULAR HEMOGLOBIN 29.8 pg (27.0-33.0); MEAN CORPUSCULAR VOLUME 87.6 fl (80.0-96.0); MONO # 0.3 10^3/uL (0.0-0.8); MONO % 7.3 % (0.0-5.0); NEUTROPHILS # 2.7 10^3/uL (1.5-8.5); NEUTROPHILS % 58.4 % (36.0-66.0); PLATELET COUNT, AUTOMATED 197 10^3/uL (150-450); WHITE BLOOD COUNT 4.6 10^3/uL (4.0-10.0)
[2019-08-21 14:59] LABS: ALBUMIN 4.1 GM/DL (3.2-5.2); ALT/SGPT 26 U/L (12-78); BILIRUBIN,TOTAL 0.6 MG/DL (0.2-1.0); BLOOD UREA NITROGEN 15 MG/DL (7-18); C REACTIVE PROTEIN QUANTITATIV < 0.30 MG/DL (0.00-0.30); CALCIUM LEVEL 8.9 MG/DL (8.5-10.1); CARBON DIOXIDE LEVEL 30 MEQ/L (21-32); CHLORIDE LEVEL 104 MEQ/L (98-107); CREATININE FOR GFR 0.82 MG/DL (0.70-1.30); GLOMERULAR FILTRATION RATE > 60.0 (>60); GLUCOSE, FASTING 87 MG/DL (70-100); SODIUM LEVEL 142 MEQ/L (136-145); TOTAL PROTEIN 7.3 GM/DL (6.4-8.2)
[2019-08-21 15:18] LABS: ERYTHROCYTE SEDIMENTATION RATE 6 mm/hr (0-15)
== END ==
LOC: M SHH 13:43
PROVIDERS: ATTEND Internal Medicine Infectious Disease
DX: A69.20 Lyme disease, unspecified (principal)

== ENCOUNTER → 2019-08-28 | Outpatient (REF) | payer OTHER ==
[2019-08-28 13:07] LABS: FOLATE 8.8 NG/ML; FREE T4 1.07 NG/DL (0.76-1.46); THYROID STIMULATING HORMONE 1.42 uIU/ML (0.358-3.740)
== END ==
LOC: M LABNEURO 11:27
PROVIDERS: ATTEND Psychiatry & Neurology Neurology
DX: R41.3 Other amnesia (principal)

== ENCOUNTER → 2019-08-28 | Outpatient (REF) | payer OTHER ==
[2019-08-28 13:02] LABS: BASO # 0.1 10^3/uL (0.0-0.2); BASO % 1.2 % (0.0-1.0); EOS # 0.2 10^3/uL (0.0-0.5); EOS % 5.1 % (0.0-3.0); HEMATOCRIT 43.6 % (42.0-52.0); HEMOGLOBIN 15.1 g/dl (13.5-17.5); LYMPH # 1.4 10^3/uL (1.5-5.0); LYMPH % 31.4 % (24.0-44.0); MEAN CORPUSCULAR HEMOGLOBIN 30.5 pg (27.0-33.0); MEAN CORPUSCULAR HGB CONC 34.6 g/dl (32.0-36.5); MEAN CORPUSCULAR VOLUME 88.1 fl (80.0-96.0); MONO # 0.5 10^3/uL (0.0-0.8); MONO % 10.4 % (0.0-5.0); NEUTROPHILS # 2.2 10^3/uL (1.5-8.5); NEUTROPHILS % 51.4 % (36.0-66.0); PLATELET COUNT, AUTOMATED 185 10^3/uL (150-450); RED BLOOD COUNT 4.95 10^6/uL (4.30-6.10); WHITE BLOOD COUNT 4.3 10^3/uL (4.0-10.0)
[2019-08-28 13:34] LABS: ALT/SGPT 29 U/L (12-78); BILIRUBIN,TOTAL 0.6 MG/DL (0.2-1.0); BLOOD UREA NITROGEN 14 MG/DL (7-18); C REACTIVE PROTEIN QUANTITATIV < 0.30 MG/DL (0.00-0.30); CALCIUM LEVEL 9.6 MG/DL (8.5-10.1); CARBON DIOXIDE LEVEL 28 MEQ/L (21-32); CHLORIDE LEVEL 105 MEQ/L (98-107); CREATININE FOR GFR 0.78 MG/DL (0.70-1.30); GLOMERULAR FILTRATION RATE > 60.0 (>60); GLUCOSE, FASTING 78 MG/DL (70-100); POTASSIUM SERUM 4.2 MEQ/L (3.5-5.1); SODIUM LEVEL 140 MEQ/L (136-145); TOTAL PROTEIN 7.5 GM/DL (6.4-8.2)
[2019-08-28 14:43] LABS: ERYTHROCYTE SEDIMENTATION RATE 11 mm/hr (0-15)
== END ==
LOC: M SHH 12:49
PROVIDERS: ATTEND Internal Medicine Infectious Disease
DX: A69.20 Lyme disease, unspecified (principal)

== ENCOUNTER → 2019-09-04 | Outpatient (REF) | payer OTHER ==
[2019-09-04 12:13] LABS: BASO # 0.1 10^3/uL (0.0-0.2); BASO % 1.4 % (0.0-1.0); EOS # 0.2 10^3/uL (0.0-0.5); EOS % 4.5 % (0.0-3.0); HEMOGLOBIN 14.6 g/dl (13.5-17.5); LYMPH # 1.3 10^3/uL (1.5-5.0); LYMPH % 29.6 % (24.0-44.0); MEAN CORPUSCULAR HEMOGLOBIN 30.2 pg (27.0-33.0); MEAN CORPUSCULAR HGB CONC 34.8 g/dl (32.0-36.5); MONO # 0.3 10^3/uL (0.0-0.8); NEUTROPHILS # 2.4 10^3/uL (1.5-8.5); PLATELET COUNT, AUTOMATED 208 10^3/uL (150-450); RED BLOOD COUNT 4.83 10^6/uL (4.30-6.10); WHITE BLOOD COUNT 4.3 10^3/uL (4.0-10.0)
[2019-09-04 12:39] LABS: ERYTHROCYTE SEDIMENTATION RATE 7 mm/hr (0-15)
[2019-09-04 12:45] LABS: ALBUMIN 4.1 GM/DL (3.2-5.2); ALT/SGPT 36 U/L (12-78); BILIRUBIN,TOTAL 0.7 MG/DL (0.2-1.0); BLOOD UREA NITROGEN 15 MG/DL (7-18); C REACTIVE PROTEIN QUANTITATIV 0.32 MG/DL (0.00-0.30); CARBON DIOXIDE LEVEL 29 MEQ/L (21-32); CHLORIDE LEVEL 104 MEQ/L (98-107); CREATININE FOR GFR 0.86 MG/DL (0.70-1.30); GLOMERULAR FILTRATION RATE > 60.0 (>60); GLUCOSE, FASTING 99 MG/DL (70-100); POTASSIUM SERUM 3.9 MEQ/L (3.5-5.1); SODIUM LEVEL 139 MEQ/L (136-145); TOTAL PROTEIN 7.3 GM/DL (6.4-8.2)
== END ==
LOC: M SHH 11:32
PROVIDERS: ATTEND Internal Medicine Infectious Disease
DX: A69.20 Lyme disease, unspecified (principal)

== ENCOUNTER → 2019-09-11 | Outpatient (REF) | payer OTHER ==
[2019-09-11 13:13] LABS: BASO # 0.1 10^3/uL (0.0-0.2); BASO % 1.4 % (0.0-1.0); EOS # 0.2 10^3/uL (0.0-0.5); EOS % 4.9 % (0.0-3.0); HEMATOCRIT 41.6 % (42.0-52.0); HEMOGLOBIN 14.4 g/dl (13.5-17.5); LYMPH # 1.2 10^3/uL (1.5-5.0); LYMPH % 28.4 % (24.0-44.0); MEAN CORPUSCULAR HEMOGLOBIN 30.3 pg (27.0-33.0); MEAN CORPUSCULAR HGB CONC 34.6 g/dl (32.0-36.5); MEAN CORPUSCULAR VOLUME 87.4 fl (80.0-96.0); MONO # 0.4 10^3/uL (0.0-0.8); MONO % 9.1 % (0.0-5.0); NEUTROPHILS # 2.4 10^3/uL (1.5-8.5); PLATELET COUNT, AUTOMATED 198 10^3/uL (150-450); RED BLOOD COUNT 4.76 10^6/uL (4.30-6.10); WHITE BLOOD COUNT 4.3 10^3/uL (4.0-10.0)
[2019-09-11 13:38] LABS: ALBUMIN 3.8 GM/DL (3.2-5.2); ALT/SGPT 39 U/L (12-78); BILIRUBIN,TOTAL 0.6 MG/DL (0.2-1.0); BLOOD UREA NITROGEN 15 MG/DL (7-18); C REACTIVE PROTEIN QUANTITATIV < 0.30 MG/DL (0.00-0.30); CALCIUM LEVEL 8.8 MG/DL (8.5-10.1); CARBON DIOXIDE LEVEL 28 MEQ/L (21-32); CHLORIDE LEVEL 105 MEQ/L (98-107); CREATININE FOR GFR 0.78 MG/DL (0.70-1.30); GLOMERULAR FILTRATION RATE > 60.0 (>60); GLUCOSE, FASTING 69 MG/DL (70-100); SODIUM LEVEL 140 MEQ/L (136-145)
[2019-09-11 13:54] LABS: ERYTHROCYTE SEDIMENTATION RATE 8 mm/hr (0-15)
== END ==
LOC: M SHH 12:47
PROVIDERS: ATTEND Internal Medicine Infectious Disease
DX: A69.20 Lyme disease, unspecified (principal)

== ENCOUNTER → 2020-01-10 | Outpatient (REF) | payer OTHER ==
[2020-01-10 17:39] LABS: APPEARANCE, URINE CLEAR (CLEAR); BACTERIA, URINE AUTO NEGATIVE (NEGATIVE); BILIRUBIN, URINE AUTO NEGATIVE (NEGATIVE); BLOOD, URINE BLOOD NEGATIVE (NEGATIVE); COLOR, URINE STRAW (YELLOW); GLUCOSE, URINE (UA) AUTO NEGATIVE (NEGATIVE); KETONE, URINE AUTO NEGATIVE (NEGATIVE); LEUKOCYTE ESTERASE, URINE AUTO NEGATIVE (NEGATIVE); NITRITE, URINE AUTO NEGATIVE (NEGATIVE); PROTEIN, URINE AUTO NEGATIVE (NEGATIVE); RBC, URINE AUTO 0 /HPF (0-3); SPECIFIC GRAVITY URINE AUTO 1.003 (1.002-1.035); SQUAMOUS EPITHELIAL CELL UR AU 0 /HPF (0-6); UROBILINOGEN, URINE AUTO 0.2 mg/dL (0.0-2.0); WBC, URINE AUTO 0 /HPF (0-3)
== END ==
LOC: M SMT 16:56
PROVIDERS: ATTEND Nurse Practitioner Women's Health
DX: N48.89 Other specified disorders of penis (principal)

== ENCOUNTER → 2020-04-12 | Outpatient (REF) | payer OTHER ==
[2020-04-12 19:21] LABS: APPEARANCE, URINE CLEAR (CLEAR); BACTERIA, URINE AUTO NEGATIVE (NEGATIVE); BILIRUBIN, URINE AUTO NEGATIVE (NEGATIVE); BLOOD, URINE BLOOD NEGATIVE (NEGATIVE); COLOR, URINE COLORLESS (YELLOW); GLUCOSE, URINE (UA) AUTO NEGATIVE (NEGATIVE); KETONE, URINE AUTO NEGATIVE (NEGATIVE); LEUKOCYTE ESTERASE, URINE AUTO NEGATIVE (NEGATIVE); NITRITE, URINE AUTO NEGATIVE (NEGATIVE); PROTEIN, URINE AUTO NEGATIVE (NEGATIVE); RBC, URINE AUTO 0 /HPF (0-3); SPECIFIC GRAVITY URINE AUTO 1.001 (1.002-1.035); SQUAMOUS EPITHELIAL CELL UR AU 0 /HPF (0-6); UROBILINOGEN, URINE AUTO 0.2 mg/dL (0.0-2.0); WBC, URINE AUTO 0 /HPF (0-3)
== END ==
LOC: M SMT 16:37
PROVIDERS: ATTEND Nurse Practitioner Women's Health
DX: R30.0 Dysuria (principal)

== ENCOUNTER → 2020-10-31 | Outpatient (CLI) | payer OTHER ==
--- NOTE | 2020-10-31 13:31 | REP ---
INDICATION: DYSPNEA, UNSPECIFIED / LABS 1ST COMPARISON: 07/17/2019 TECHNIQUE: PA and lateral. FINDINGS: The mediastinum and cardiac silhouette are normal. The lung douglas are clear and without acute consolidation, effusion, or pneumothorax. The skeletal structures are intact and normal. IMPRESSION: No acute cardiopulmonary process. <Electronically signed by David Reid > 10/31/20 1614
[2020-10-31 13:57] LABS: BASO # 0.1 10^3/uL (0.0-0.2); BASO % 0.9 % (0.0-1.0); EOS # 0.1 10^3/uL (0.0-0.5); EOS % 1.1 % (0.0-3.0); HEMATOCRIT 45.9 % (42.0-52.0); HEMOGLOBIN 15.9 g/dl (13.5-17.5); LYMPH # 1.3 10^3/uL (1.5-5.0); LYMPH % 22.6 % (24.0-44.0); MEAN CORPUSCULAR HEMOGLOBIN 30.6 pg (27.0-33.0); MEAN CORPUSCULAR HGB CONC 34.6 g/dl (32.0-36.5); MEAN CORPUSCULAR VOLUME 88.4 fl (80.0-96.0); MONO # 0.3 10^3/uL (0.0-0.8); NEUTROPHILS # 3.9 10^3/uL (1.5-8.5); PLATELET COUNT, AUTOMATED 207 10^3/uL (150-450); RED BLOOD COUNT 5.19 10^6/uL (4.30-6.10); WHITE BLOOD COUNT 5.7 10^3/uL (4.0-10.0)
== END ==
LOC: M LAB 12:23
PROVIDERS: ATTEND Internal Medicine Cardiovascular Disease
DX: R06.00 Dyspnea, unspecified (principal)

== ENCOUNTER → 2020-12-27 | Outpatient (CLI) | payer OTHER ==
[2020-12-27 13:51] LABS: BASO # 0.1 10^3/uL (0.0-0.2); EOS # 0.1 10^3/uL (0.0-0.5); EOS % 2.1 % (0.0-3.0); HEMATOCRIT 42.4 % (42.0-52.0); HEMOGLOBIN 14.8 g/dl (13.5-17.5); LYMPH # 1.3 10^3/uL (1.5-5.0); LYMPH % 27.2 % (24.0-44.0); MEAN CORPUSCULAR HEMOGLOBIN 30.4 pg (27.0-33.0); MEAN CORPUSCULAR HGB CONC 34.9 g/dl (32.0-36.5); MEAN CORPUSCULAR VOLUME 87.1 fl (80.0-96.0); MONO # 0.4 10^3/uL (0.0-0.8); MONO % 7.7 % (2.0-8.0); NEUTROPHILS % 61.8 % (36.0-66.0); PLATELET COUNT, AUTOMATED 193 10^3/uL (150-450); RED BLOOD COUNT 4.87 10^6/uL (4.30-6.10); WHITE BLOOD COUNT 4.8 10^3/uL (4.0-10.0)
[2020-12-27 13:54] LABS: APPEARANCE, URINE CLEAR (CLEAR); BACTERIA, URINE AUTO NEGATIVE (NEGATIVE); BILIRUBIN, URINE AUTO NEGATIVE (NEGATIVE); BLOOD, URINE BLOOD NEGATIVE (NEGATIVE); COLOR, URINE STRAW (YELLOW); GLUCOSE, URINE (UA) AUTO NEGATIVE (NEGATIVE); KETONE, URINE AUTO NEGATIVE (NEGATIVE); LEUKOCYTE ESTERASE, URINE AUTO NEGATIVE (NEGATIVE); NITRITE, URINE AUTO NEGATIVE (NEGATIVE); PROTEIN, URINE AUTO NEGATIVE (NEGATIVE); RBC, URINE AUTO 0 /HPF (0-3); SPECIFIC GRAVITY URINE AUTO 1.009 (1.002-1.035); SQUAMOUS EPITHELIAL CELL UR AU 0 /HPF (0-6); UROBILINOGEN, URINE AUTO 0.2 mg/dL (0.0-2.0); WBC, URINE AUTO 0 /HPF (0-3)
[2020-12-27 14:28] LABS: ALBUMIN 4.2 GM/DL (3.2-5.2); ALT/SGPT 24 U/L (12-78); BILIRUBIN,TOTAL 0.6 MG/DL (0.2-1.0); BLOOD UREA NITROGEN 12 MG/DL (7-18); CALCIUM LEVEL 9.1 MG/DL (8.5-10.1); CARBON DIOXIDE LEVEL 29 MEQ/L (21-32); CHLORIDE LEVEL 108 MEQ/L (98-107); CHOLESTEROL LEVEL 213 MG/DL (<200); CHOLESTEROL RISK RATIO 3.491 (<5); CREATININE FOR GFR 0.84 MG/DL (0.70-1.30); FREE T4 1.03 NG/DL (0.76-1.46); GLOMERULAR FILTRATION RATE > 60.0 (>56); GLUCOSE, FASTING 91 MG/DL (70-100); HDL CHOLESTEROL 61 MG/DL (>40); LDL CHOLESTEROL 135 MG/DL (<100); NON-HDL-C 152 MG/DL; POTASSIUM SERUM 4.3 MEQ/L (3.5-5.1); SODIUM LEVEL 140 MEQ/L (136-145); TOTAL PROTEIN 7.2 GM/DL (6.4-8.2); TRIGLYCERIDES LEVEL 85 MG/DL (<150)
[2020-12-27 18:34] LABS: TOTAL 25(OH) VITAMIN D 22.1 NG/ML (30.0-100.0)
== END ==
LOC: M LAB 13:10
PROVIDERS: ATTEND Family Medicine
DX: Z00.00 Encounter for general adult medical examination without abnormal findings (principal); N52.1 Erectile dysfunction due to diseases classified elsewhere; E55.9 Vitamin D deficiency, unspecified

== ENCOUNTER → 2021-07-14 | Outpatient (CLI) | payer OTHER ==
[~2021-07-14] MED LIST changes: -DOXY100C PO; +DOXY100C3 PO; +LOSA50TA88; +VITA1CAP25
== END ==
LOC: M LABSMTC 10:12
PROVIDERS: ATTEND Anesthesiology
DX: Z01.812 Encounter for preprocedural laboratory examination (principal); Z20.822 Contact with and (suspected) exposure to COVID-19

== ENCOUNTER 2021-07-18 11:52 | Day surgery (SDC) | payer OTHER ==
[~2021-07-18] VITALS: Ht 180.3 cm; Wt 94.8 kg
[~2021-07-18 11:52] MED LIST changes: +NS 1,000 ML IV ONE
[2021-07-18] MEDS ORDERED: propofoL 500 MG/50 ML VIAL As Ordered ONE (13:34)
[2021-07-18] MEDS ORDERED: LIDOCAINE 2% 100MG/5ML SDV (FOR ANES.) As Ordered ONE (13:34)
[2021-07-18] MEDS ORDERED: fentaNYL 100 MCG/2 ML INJECTION (J3010) As Ordered ONE (13:34)
[2021-07-18] MEDS ORDERED: GLYCOPYRROLATE INJ 0.2 MG/ML 2 ML VIAL As Ordered ONE (13:51)
--- NOTE | 2021-07-18 14:18 | ROOR ---
Patient Name: Jorge Kline Procedure Date: 07/18/2021 1:24 PM Date of : 1970 Age: 50 Room: [facility] Gender: Male Note Status: Finalized Procedure: Upper GI endoscopy Indications: Heartburn Providers: Sohan Hagen MD Referring MD: SAVAGE IRENE MD Requesting Provider: Medicines: Monitored Anesthesia Care Complications: No immediate complications. Procedure: Pre-Anesthesia Assessment: - Prior to the procedure, a History and Physical was performed, and patient medications and allergies were reviewed. The patient is competent. The risks and benefits of the procedure and the sedation options and risks were discussed with the patient. All questions were answered and informed consent was obtained. Patient identification and proposed procedure were verified by the physician, the nurse and the anesthesiologist in the procedure room. Mental Status Examination: alert and oriented. Airway Examination: normal oropharyngeal airway and neck mobility. Respiratory Examination: clear to auscultation. CV Examination: normal. Prophylactic Antibiotics: The patient does not require prophylactic antibiotics. Prior Anticoagulants: The patient has taken no previous anticoagulant or antiplatelet agents. ASA Grade Assessment: II - A patient with mild systemic disease. After reviewing the risks and benefits, the patient was deemed in satisfactory condition to undergo the procedure. The anesthesia plan was to use monitored anesthesia care (MAC). Immediately prior to administration of medications, the patient was re-assessed for adequacy to receive sedatives. The heart rate, respiratory rate, oxygen saturations, blood pressure, adequacy of pulmonary ventilation, and response to care were monitored throughout the procedure. The physical status of the patient was re-assessed after the procedure. The Endoscope was introduced through the mouth, and advanced to the second part of duodenum. The upper GI endoscopy was accomplished without difficulty. The patient tolerated the procedure well. Findings: The examined esophagus was normal. The Z-line was regular and was found 41 cm from the incisors. Scattered mild inflammation characterized by erythema and granularity was found in the gastric antrum. Biopsies were taken with a cold forceps for Helicobacter pylori testing. Verification of patient identification for the specimen was done by the physician and nurse using the patient's name, date and medical record number. Estimated blood loss was minimal. The duodenal bulb and second portion of the duodenum were normal. Impression: - Normal esophagus. - Z-line regular, 41 cm from the incisors. - Gastritis. Biopsied. - Normal duodenal bulb and second portion of the duodenum. Recommendation: - Patient has a contact number available for emergencies. The signs and symptoms of potential delayed complications were discussed with the patient. Return to normal activities tomorrow. Written discharge instructions were provided to the patient. - High fiber diet. - Continue present medications. - Await pathology results. - Follow an antireflux regimen. - Telephone GI clinic for pathology results in 2 weeks. - Return to GI clinic if persistent symptoms or new symptoms. - Return to primary care physician. Procedure Code(s): --- Professional --- 87467, Esophagogastroduodenoscopy, flexible, transoral; with biopsy, single or multiple Diagnosis Code(s): --- Professional --- K29.70, Gastritis, unspecified, without bleeding R12, Heartburn CPT copyright 2019 [employer]. All rights reserved. The codes documented in this report are preliminary and upon machine etcher review may be revised to meet current compliance requirements. Sohan Hagen MD Sohan Hagen MD 07/18/2021 2:17:46 PM Electronically signed by Sohan Hagen MD Number of Addenda: 0 Note Initiated On: 07/18/2021 1:24 PM Estimated Blood Loss: Estimated blood loss was minimal.
--- NOTE | 2021-07-18 14:26 | ROOR ---
Patient Name: Jorge Kline Procedure Date: 07/18/2021 1:25 PM Date of : 1970 Age: 50 Room: [facility] Gender: Male Note Status: Finalized Procedure: Colonoscopy Indications: Screening for colorectal malignant neoplasm Providers: Sohan Hagen MD Referring MD: SAVAGE IRENE MD Requesting Provider: Medicines: Monitored Anesthesia Care Complications: No immediate complications. Procedure: Pre-Anesthesia Assessment: - Prior to the procedure, a History and Physical was performed, and patient medications and allergies were reviewed. The patient is competent. The risks and benefits of the procedure and the sedation options and risks were discussed with the patient. All questions were answered and informed consent was obtained. Patient identification and proposed procedure were verified by the physician, the nurse and the anesthesiologist in the procedure room. Mental Status Examination: normal. Airway Examination: normal oropharyngeal airway and neck mobility. Respiratory Examination: clear to auscultation. CV Examination: normal. Prophylactic Antibiotics: The patient does not require prophylactic antibiotics. Prior Anticoagulants: The patient has taken no previous anticoagulant or antiplatelet agents. ASA Grade Assessment: II - A patient with mild systemic disease. After reviewing the risks and benefits, the patient was deemed in satisfactory condition to undergo the procedure. The anesthesia plan was to use monitored anesthesia care (MAC). Immediately prior to administration of medications, the patient was re-assessed for adequacy to receive sedatives. The heart rate, respiratory rate, oxygen saturations, blood pressure, adequacy of pulmonary ventilation, and response to care were monitored throughout the procedure. The physical status of the patient was re-assessed after the procedure. The Colonoscope was introduced through the anus and advanced to the terminal ileum, with identification of the appendiceal orifice and IC valve. The colonoscopy was technically difficult and complex due to restricted mobility of the colon. Successful completion of the procedure was aided by withdrawing the scope and replacing with the enteroscope. The patient tolerated the procedure well. The quality of the bowel preparation was good. The ileocecal valve, appendiceal orifice, and rectum were photographed. Scope insertion time was 2 minutes. Scope withdrawal time was 9 minutes. The total duration of the procedure was 12 minutes. Findings: The perianal and digital rectal examinations were normal. The terminal ileum appeared normal. A localized area of granular mucosa was found in the ascending colon. Biopsies were taken with a cold forceps for histology. Verification of patient identification for the specimen was done by the physician and nurse using the patient's name, date and medical record number. Estimated blood loss was minimal. The sigmoid colon revealed significantly excessive looping. Non-bleeding external and internal hemorrhoids were found during retroflexion. The hemorrhoids were small. Impression: - The examined portion of the ileum was normal. - Granularity in the ascending colon. Biopsied. - There was significant looping of the colon. - Non-bleeding external and internal hemorrhoids. Recommendation: - Patient has a contact number available for emergencies. The signs and symptoms of potential delayed complications were discussed with the patient. Return to normal activities tomorrow. Written discharge instructions were provided to the patient. - High fiber diet. - Continue present medications. - Miralax 1 capful (17 grams) in 8 ounces of water PO PRN. - Await pathology results. - Repeat colonoscopy in 5 years for surveillance based on pathology results and due to family history of colon cancer. - Telephone GI clinic for pathology results in 2 weeks. - Return to GI clinic if persistent symptoms or new symptoms. - Return to primary care physician. Procedure Code(s): --- Professional --- 38937, Colonoscopy, flexible; with biopsy, single or multiple Diagnosis Code(s): --- Professional --- Z12.11, Encounter for screening for malignant neoplasm of colon K64.8, Other hemorrhoids K63.89, Other specified diseases of intestine CPT copyright 2019 [employer]. All rights reserved. The codes documented in this report are preliminary and upon distribution field technician review may be revised to meet current compliance requirements. Sohan Hagen MD Sohan Hagen MD 07/18/2021 2:26:31 PM Electronically signed by Sohan Hagen MD Number of Addenda: 0 Note Initiated On: 07/18/2021 1:25 PM Estimated Blood Loss: Estimated blood loss was minimal.
[2021-07-18 14:39] VITALS: BP 136/82
== END 2021-07-18 14:41 | disposition home or self-care (01) ==
LOC: M OPP 11:52
PROVIDERS: ATTEND Internal Medicine Gastroenterology
DX: Z12.11 Encounter for screening for malignant neoplasm of colon (principal); Z80.0 Family history of malignant neoplasm of digestive organs; K63.89 Other specified diseases of intestine; K64.8 Other hemorrhoids; K29.70 Gastritis, unspecified, without bleeding; R12 Heartburn; Z79.899 Other long term (current) drug therapy
CPT/HCPCS: 43239; 45380; 88305; J3010

== ENCOUNTER → 2021-09-08 | Outpatient (CLI) | payer OTHER ==
[~2021-09-08] MED LIST changes: -NS 1,000 ML IV ONE
--- NOTE | 2021-09-08 14:10 | REP ---
INDICATION: PAIN IN RIGHT SHOULDER. COMPARISON: None. TECHNIQUE: Four views each shoulder FINDINGS: Right shoulder: There is humeral head marginal osteophytosis. The glenohumeral relationship is maintained. The acromioclavicular joint is within normal limits. Left shoulder: There is humeral head marginal osteophytosis. The glenohumeral relationship is maintained. Degenerative changes seen involving the acromioclavicular joint. IMPRESSION: Chronic changes seen bilaterally as described above. <Electronically signed by Jaren Flood > 09/08/21 1510
[2021-09-08 15:49] LABS: BASO % 0.7 % (0.0-1.0); EOS # 0.1 10^3/uL (0.0-0.5); EOS % 1.3 % (0.0-3.0); HEMATOCRIT 42.6 % (42.0-52.0); HEMOGLOBIN 14.8 g/dl (13.5-17.5); LYMPH # 1.3 10^3/uL (1.5-5.0); LYMPH % 25.1 % (24.0-44.0); MEAN CORPUSCULAR HEMOGLOBIN 30.3 pg (27.0-33.0); MEAN CORPUSCULAR HGB CONC 34.7 g/dl (32.0-36.5); MEAN CORPUSCULAR VOLUME 87.3 fl (80.0-96.0); MONO # 0.3 10^3/uL (0.0-0.8); MONO % 5.6 % (2.0-8.0); NEUTROPHILS # 3.6 10^3/uL (1.5-8.5); NEUTROPHILS % 66.9 % (36.0-66.0); PLATELET COUNT, AUTOMATED 211 10^3/uL (150-450); RED BLOOD COUNT 4.88 10^6/uL (4.30-6.10); WHITE BLOOD COUNT 5.3 10^3/uL (4.0-10.0)
[2021-09-08 16:19] LABS: ALBUMIN 4.1 GM/DL (3.2-5.2); ALT/SGPT 28 U/L (12-78); BILIRUBIN,TOTAL 0.6 MG/DL (0.2-1.0); BLOOD UREA NITROGEN 13 MG/DL (7-18); CALCIUM LEVEL 9.4 MG/DL (8.5-10.1); CARBON DIOXIDE LEVEL 29 MEQ/L (21-32); CHLORIDE LEVEL 107 MEQ/L (98-107); CREATININE FOR GFR 0.83 MG/DL (0.70-1.30); GLOMERULAR FILTRATION RATE > 60.0 (>56); GLUCOSE, FASTING 90 MG/DL (70-100); POTASSIUM SERUM 3.9 MEQ/L (3.5-5.1); SODIUM LEVEL 141 MEQ/L (136-145); TOTAL PROTEIN 7.2 GM/DL (6.4-8.2)
[2021-09-08 16:42] LABS: ERYTHROCYTE SEDIMENTATION RATE 6 mm/hr (0-20)
[2021-09-09 15:22] LABS: HIV 1&2 SCREEN CENTAUR NEGATIVE (NEGATIVE)
== END ==
LOC: M PLAIMG 12:44 → M PLALAB 12:44
PROVIDERS: ATTEND Internal Medicine Infectious Disease
DX: A69.20 Lyme disease, unspecified (principal); M25.511 Pain in right shoulder; K13.79 Other lesions of oral mucosa

== ENCOUNTER → 2021-11-27 | Outpatient (REF) | payer OTHER ==
[~2021-11-27] MED LIST changes: +LOSA50TA28; -LOSA50TA88
[2021-11-27 17:27] LABS: APPEARANCE, URINE CLEAR (CLEAR); BACTERIA, URINE AUTO NEGATIVE (NEGATIVE); BILIRUBIN, URINE AUTO NEGATIVE (NEGATIVE); BLOOD, URINE BLOOD NEGATIVE (NEGATIVE); COLOR, URINE COLORLESS (YELLOW); GLUCOSE, URINE (UA) AUTO NEGATIVE (NEGATIVE); KETONE, URINE AUTO NEGATIVE (NEGATIVE); LEUKOCYTE ESTERASE, URINE AUTO NEGATIVE (NEGATIVE); NITRITE, URINE AUTO NEGATIVE (NEGATIVE); PROTEIN, URINE AUTO NEGATIVE (NEGATIVE); RBC, URINE AUTO 0 /HPF (0-3); SPECIFIC GRAVITY URINE AUTO 1.001 (1.002-1.035); SQUAMOUS EPITHELIAL CELL UR AU 0 /HPF (0-6); UROBILINOGEN, URINE AUTO 0.2 mg/dL (0.0-2.0); WBC, URINE AUTO 0 /HPF (0-3)
[2021-11-27 19:34] LABS: GC DNA AMPLIFICATION NEGATIVE (NEGATIVE)
== END ==
LOC: M SMT 16:45
PROVIDERS: ATTEND Physician Assistant
DX: N41.1 Chronic prostatitis (principal)

== ENCOUNTER → 2021-12-26 | Outpatient (CLI) | payer OTHER | LOC: M PLARAD 15:04 | PROVIDERS: ATTEND Otolaryngology | DX: H90.3 Sensorineural hearing loss, bilateral (principal) ==

== ENCOUNTER → 2022-03-19 | Outpatient (CLI) | payer OTHER ==
[2022-03-19 15:50] LABS: THYROID STIMULATING HORMONE 0.896 uIU/ML (0.358-3.740); THYROXINE (T4) 9.5 UG/DL (4.5-12.0)
[2022-03-19 15:54] LABS: TOTAL T3 98.1 NG/DL (60.0-181.0)
[2022-03-20 11:09] LABS: ANTINUCLEAR ANTIBODIES DIRECT Negative (Negative); SJOGREN'S ANTI SS-A <0.2 AI (0.0-0.9); SJOGREN'S ANTI SS-B <0.2 AI (0.0-0.9)
== END ==
LOC: M LAB 13:39
PROVIDERS: ATTEND Optometrist
DX: A69.29 Other conditions associated with Lyme disease (principal)

== ENCOUNTER → 2022-03-24 | Outpatient (CLI) | payer OTHER ==
[2022-03-24 13:50] LABS: BASO % 0.6 % (0.0-1.0); EOS % 0.4 % (0.0-3.0); HEMATOCRIT 44.4 % (42.0-52.0); HEMOGLOBIN 15.2 g/dl (13.5-17.5); LYMPH # 1.2 10^3/uL (1.5-5.0); LYMPH % 25.6 % (24.0-44.0); MEAN CORPUSCULAR HGB CONC 34.2 g/dl (32.0-36.5); MEAN CORPUSCULAR VOLUME 87.6 fl (80.0-96.0); MONO # 0.3 10^3/uL (0.0-0.8); MONO % 5.5 % (2.0-8.0); NEUTROPHILS # 3.2 10^3/uL (1.5-8.5); NEUTROPHILS % 67.7 % (36.0-66.0); PLATELET COUNT, AUTOMATED 218 10^3/uL (150-450); RED BLOOD COUNT 5.07 10^6/uL (4.30-6.10); WHITE BLOOD COUNT 4.7 10^3/uL (4.0-10.0)
[2022-03-24 14:14] LABS: ALBUMIN 4.3 GM/DL (3.2-5.2); ALT/SGPT 30 U/L (12-78); BILIRUBIN,DIRECT 0.2 MG/DL (0.0-0.2); BILIRUBIN,TOTAL 0.9 MG/DL (0.2-1.0); C REACTIVE PROTEIN QUANTITATIV < 0.30 MG/DL (0.00-0.30); COMPLEMENT C3 96 MG/DL (90-180); COMPLEMENT C4 26 MG/DL (10-40); TOTAL PROTEIN 7.6 GM/DL (6.4-8.2)
[2022-03-24 14:23] LABS: VITAMIN B12 LEVEL 409 PG/ML
[2022-03-24 14:24] LABS: FOLATE 9.1 NG/ML
[2022-03-24 14:27] LABS: ERYTHROCYTE SEDIMENTATION RATE 9 mm/hr (0-20)
[2022-03-25 09:47] LABS: DRVV SCREEN 43.6 SEC
[2022-03-25 09:49] LABS: PTT LUPUS TYPE ANTICOAG SCREEN 1.1 (0-1.2)
== END ==
LOC: M LAB 12:36
PROVIDERS: ATTEND Ophthalmology
DX: H20.9 Unspecified iridocyclitis (principal); M32.9 Systemic lupus erythematosus, unspecified; E53.8 Deficiency of other specified B group vitamins

== ENCOUNTER 2022-05-23 06:15 | Emergency (ER) | payer OTHER ==
[~2022-05-23] VITALS: Ht 180.3 cm; Wt 91.8 kg
[2022-05-23] MEDS ORDERED: OMEP-173 PO (06:24)
[2022-05-23] MEDS ORDERED: VALT1TAB PO (06:24)
[2022-05-23] MEDS ORDERED: VALT500T PO (06:24)
[2022-05-23] MEDS ORDERED: KETOROLAC 30 MG/ML 1ML VIAL IV ONE (09:20)
[2022-05-23] MEDS ORDERED: METOCLOPRAMIDE INJ 10MG/2ML VIAL (J2765 PER 1) IV ONE (09:20)
[2022-05-23] MEDS ORDERED: NS 1,000 ML IV ONE (09:20)
[2022-05-23 10:09] LABS: BASO % 0.4 % (0.0-1.0); HEMATOCRIT 44.4 % (42.0-52.0); HEMOGLOBIN 15.5 g/dl (13.5-17.5); LYMPH % 19.6 % (24.0-44.0); MEAN CORPUSCULAR HEMOGLOBIN 30.5 pg (27.0-33.0); MEAN CORPUSCULAR HGB CONC 34.9 g/dl (32.0-36.5); MEAN CORPUSCULAR VOLUME 87.2 fl (80.0-96.0); MONO # 0.3 10^3/uL (0.0-0.8); MONO % 6.5 % (2.0-8.0); NEUTROPHILS # 3.6 10^3/uL (1.5-8.5); NEUTROPHILS % 72.9 % (36.0-66.0); PLATELET COUNT, AUTOMATED 221 10^3/uL (150-450); RED BLOOD COUNT 5.09 10^6/uL (4.30-6.10)
[2022-05-23 11:02] LABS: ALBUMIN 4.1 GM/DL (3.2-5.2); ALT/SGPT 32 U/L (12-78); BILIRUBIN,TOTAL 0.6 MG/DL (0.2-1.0); BLOOD UREA NITROGEN 7 MG/DL (7-18); CALCIUM LEVEL 9.4 MG/DL (8.5-10.1); CARBON DIOXIDE LEVEL 27 MEQ/L (21-32); CHLORIDE LEVEL 106 MEQ/L (98-107); CREATININE FOR GFR 0.72 MG/DL (0.70-1.30); GLOMERULAR FILTRATION RATE > 60.0 (>56); GLUCOSE, FASTING 103 MG/DL (70-100); MAGNESIUM LEVEL 2.2 MG/DL (1.8-2.4); POTASSIUM SERUM 3.8 MEQ/L (3.5-5.1); SODIUM LEVEL 140 MEQ/L (136-145); TOTAL PROTEIN 7.4 GM/DL (6.4-8.2)
[2022-05-23] MEDS ORDERED: methylPREDNISolone 125MG 2ML VIAL IV ONE (12:35)
[2022-05-23 12:38] VITALS: BP 162/108
[2022-05-25 13:41] LABS: HIV 1&2 SCREEN CENTAUR NEGATIVE (NEGATIVE)
== END 2022-05-23 13:01 | disposition home or self-care (01) ==
LOC: M ED 06:15
DX: R51.9 Headache, unspecified (principal); H93.13 Tinnitus, bilateral; R20.2 Paresthesia of skin; M54.2 Cervicalgia; I10 Essential (primary) hypertension; Z79.899 Other long term (current) drug therapy
CPT/HCPCS: 36415; 70450; 80053; 83735; 85025; 86618; 87389; 96361; 96374; 96375; 99284; J1885; J2765; J2930

== ENCOUNTER 2022-07-01 16:25 | Emergency (ER) | payer OTHER ==
[~2022-07-01] VITALS: Ht 180.3 cm; Wt 92.9 kg
[~2022-07-01 16:25] MED LIST changes: +OMEP-173 PO; +VALT1TAB PO; +VALT500T PO
[2022-07-01 17:20] LABS: BASO % 0.3 % (0.0-1.0); EOS % 0.3 % (0.0-3.0); HEMATOCRIT 40.4 % (42.0-52.0); HEMOGLOBIN 14.3 g/dl (13.5-17.5); LYMPH # 1.3 10^3/uL (1.5-5.0); LYMPH % 21.2 % (24.0-44.0); MEAN CORPUSCULAR HEMOGLOBIN 31.6 pg (27.0-33.0); MEAN CORPUSCULAR HGB CONC 35.4 g/dl (32.0-36.5); MEAN CORPUSCULAR VOLUME 89.2 fl (80.0-96.0); MONO # 0.4 10^3/uL (0.0-0.8); MONO % 6.2 % (2.0-8.0); NEUTROPHILS # 4.3 10^3/uL (1.5-8.5); NEUTROPHILS % 71.5 % (36.0-66.0); PLATELET COUNT, AUTOMATED 220 10^3/uL (150-450); RED BLOOD COUNT 4.53 10^6/uL (4.30-6.10)
[2022-07-01 17:49] LABS: ALT/SGPT 27 U/L (12-78); BILIRUBIN,DIRECT 0.1 MG/DL (0.0-0.2); BILIRUBIN,TOTAL 0.5 MG/DL (0.2-1.0); BLOOD UREA NITROGEN 10 MG/DL (7-18); CALCIUM LEVEL 9.2 MG/DL (8.5-10.1); CARBON DIOXIDE LEVEL 28 MEQ/L (21-32); CHLORIDE LEVEL 108 MEQ/L (98-107); CREATININE FOR GFR 0.78 MG/DL (0.70-1.30); GLOMERULAR FILTRATION RATE > 60.0 (>56); GLUCOSE, FASTING 76 MG/DL (70-100); LIPASE 144 U/L (73-393); NT-PRO BNP 68 PG/ML (<125); POTASSIUM SERUM 3.6 MEQ/L (3.5-5.1); SODIUM LEVEL 140 MEQ/L (136-145); TOTAL PROTEIN 7.1 GM/DL (6.4-8.2)
[2022-07-01 17:53] LABS: CK-MB VALUE MASS < 1.0 NG/ML (<3.6); CPK CREATINE PHOSPHOKINASE 83 U/L (39-308)
[2022-07-01] MEDS ORDERED: ISOVUE-370 76% 100ML VIAL As Ordered ONE (18:05)
[2022-07-01 18:16] LABS: ERYTHROCYTE SEDIMENTATION RATE 6 mm/hr (0-20)
[2022-07-01 19:09] LABS: CK-MB VALUE MASS < 1.0 NG/ML (<3.6); CPK CREATINE PHOSPHOKINASE 82 U/L (39-308); MB/CK RELATIVE INDEX 1.22 (< OR =4)
[2022-07-01 19:45] VITALS: BP 144/89
[2022-07-03 11:08] LABS: ANTINUCLEAR ANTIBODIES DIRECT Negative (Negative)
== END 2022-07-01 19:54 | disposition home or self-care (01) ==
LOC: M ED 16:25
DX: R07.9 Chest pain, unspecified (principal); R10.9 Unspecified abdominal pain; I45.10 Unspecified right bundle-branch block; I10 Essential (primary) hypertension; M54.50 Low back pain, unspecified; Z86.16 Personal history of COVID-19; Z79.899 Other long term (current) drug therapy
CPT/HCPCS: 36415; 71045; 71275; 74177; 80048; 80076; 82550; 82553; 82595; 83690; 83880; 84443; 85025; 85652; 86038; 86140; 86618; 93005; 93041; 94760; 99285; Q9967

== ENCOUNTER → 2022-08-10 | Outpatient (CLI) | payer OTHER ==
[2022-08-12 16:12] LABS: ANCA-ATYPICAL <1:20 titer (Neg:<1:20); CYTOPLASMIC NEUTROP AB ANCA-C <1:20 titer (Neg:<1:20); PERINUCLEAR AB ANCA-P <1:20 titer (Neg:<1:20); TESTOSTERONE FREE (DIRECT) 9.3 pg/mL (7.2-24.0)
== END ==
LOC: M LAB 09:16
PROVIDERS: ATTEND Family Medicine
DX: R74.8 Abnormal levels of other serum enzymes (principal); N52.1 Erectile dysfunction due to diseases classified elsewhere

== ENCOUNTER → 2022-08-20 | Outpatient (CLI) | payer OTHER ==
[2022-08-20 13:37] LABS: FERRITIN 146 NG/ML (26-388); IRON (FE) 112 UG/DL (65-175); PERCENT SATURATION 41.2 % (19.7-50.0); TOTAL IRON BINDING CAPACITY 272 UG/DL (250-450); TOTAL PROTEIN 6.7 GM/DL (6.4-8.2)
[2022-08-20 18:16] LABS: FOLATE 9.9 NG/ML; VITAMIN B12 LEVEL 364 PG/ML
[2022-08-21 13:43] LABS: ALBUMIN 4.31 GM/DL (3.29-5.55); ALBUMIN % 64.3 % (55.8-66.1); ALPHA-1-GLOBULIN % 3.6 % (2.9-4.9); ALPHA-1-GLOBULINS 0.24 GM/DL (0.17-0.41); ALPHA-2-GLOBULINS 0.61 GM/DL (0.42-0.99); ALPHA-2-GLOBULINS % 9.1 % (7.1-11.8); BETA-1-GLOBULINS 0.34 GM/DL (0.28-0.60); BETA-1-GLOBULINS % 5.1 % (4.7-7.2); BETA-2-GLOBULINS 0.27 GM/DL (0.19-0.55); GAMMA GLOBULIN % 13.9 % (11.1-18.8); GAMMA GLOBULINS 0.93 GM/DL (0.65-1.58)
== END ==
LOC: M LAB 11:51
PROVIDERS: ATTEND Psychiatry & Neurology Neurology
DX: E61.1 Iron deficiency (principal)

== ENCOUNTER → 2022-11-13 | Outpatient (CLI) | payer OTHER | LOC: M SOG 09:15 | PROVIDERS: ATTEND Orthopaedic Surgery | DX: M54.50 Low back pain, unspecified (principal) ==

== ENCOUNTER → 2022-12-11 | Outpatient (CLI) | payer OTHER | LOC: M PLARAD 10:17 | PROVIDERS: ATTEND Orthopaedic Surgery | DX: M43.10 Spondylolisthesis, site unspecified (principal); M51.26 Other intervertebral disc displacement, lumbar region; M48.07 Spinal stenosis, lumbosacral region; M51.27 Other intervertebral disc displacement, lumbosacral region; M48.061 Spinal stenosis, lumbar region without neurogenic claudication ==

== ENCOUNTER → 2022-12-25 | Outpatient (CLI) | payer OTHER | LOC: M SOG 11:35 | PROVIDERS: ATTEND Orthopaedic Surgery | DX: M19.011 Primary osteoarthritis, right shoulder (principal); M19.012 Primary osteoarthritis, left shoulder ==